=== PATIENT | female | born 1960 | race Caucasian/White ===

== ENCOUNTER 2018-01-19 23:33 | Inpatient (IN) | payer MEDICAID, MEDICARE ==
[~2018-01-19] VITALS: Ht 160 cm; Wt 75.5 kg
[~2018-01-19 23:33] MED LIST: BECL8.7A6 INH; ERGO500017 PO; MULT1TAB60 PO; SALM50DI INH
[2018-01-19] MEDS ORDERED: OMEP-110 PO (23:53)
[2018-01-20] MEDS ORDERED: BUDE10.2 INH (00:06)
[2018-01-20] MEDS ORDERED: ALBU8.5H8 INH (00:07)
[2018-01-20] MEDS ORDERED: OMNIPAQUE 350 MG/ML, 100ML BOTTLE ONE (00:10)
[2018-01-20] MEDS ORDERED: ONDANSETRON ODT 4 MG ONE (00:15)
[2018-01-20] MEDS ORDERED: MORPHINE SULFATE 4 MG/ML, 1ML ONE ×2 (00:16→02:25)
[2018-01-20] MEDS: MORPHINE SULFATE 4 MG/ML, 1ML IVPush PRN ×2 (00:18→02:38)
[2018-01-20 00:27] LABS: BASOPHILS # (AUTO) 0.11 x10^3/uL (0-0.1); BASOPHILS % (AUTO) 1 % (0-1); EOSINOPHILS # (AUTO) 0.07 x10^3/uL (0-0.4); EOSINOPHILS % (AUTO) 1 % (1-7); LYMPHOCYTES # (AUTO) 2.35 x10^3/uL (1-3.4); LYMPHOCYTES % (AUTO) 14 % (22-44); MD NO; MEAN CORPUSCULAR HEMOGLOBIN 37.3 pg (27.0-34.8); MEAN CORPUSCULAR HGB CONC 34.3 g/dL (32.4-35.8); MEAN CORPUSCULAR VOLUME 108.6 fL (80-100); MONOCYTES # (AUTO) 0.94 x10^3/uL (0.2-0.8); MONOCYTES % (AUTO) 6 % (2-9); NEUTROPHILS % (AUTO) 79 % (42-75); PLATELET COUNT 433 x10^3/uL (130-400); RED BLOOD COUNT 3.83 x10^6/uL (3.82-5.3); RED CELL DISTRIBUTION WIDTH 13.9 % (9.6-15.2)
[2018-01-20] MEDS ORDERED: ONDANSETRON ODT 4 MG PO ONE (00:30)
[2018-01-20] MEDS ORDERED: SODIUM CHLORIDE FLUSH 10ML SYR IVF ONE ×2 (00:30→02:00)
[2018-01-20 00:35] LABS: ALANINE AMINOTRANSFERASE 68 U/L (12-78); ALBUMIN 2.9 g/dL (3.4-5.0); ANION GAP 12 mmol/L (5-15); CALCIUM 8.5 mg/dL (8.5-10.1); CHLORIDE 92 mmol/L (98-107); CREATININE 0.34 mg/dL (0.55-1.02)
[2018-01-20 00:37] LABS: ALKALINE PHOSPHATASE 310 U/L (45-117); BILIRUBIN,TOTAL 1.2 mg/dL (0.2-1.0); TOTAL PROTEIN 6.9 g/dL (6.4-8.2)
[2018-01-20] MEDS ORDERED: SODIUM CHLORIDE 0.9% 1,000ML IVBOLUS ONE (02:00)
[2018-01-20 02:15] LABS: MICROSCOPIC NOT IND
[2018-01-20 02:19] LABS: CULTURE INDICATED? NO
[2018-01-20] MEDS ORDERED: NICOTINE 14MG/24 HR PATCH.TD24 ONE (02:34)
[2018-01-20] MEDS ORDERED: SODIUM CHLORIDE 0.9% 1,000 ML IV ONE (02:36)
[2018-01-20] MEDS ORDERED: NICOTINE 14MG/24 HR PATCH.TD24 TD ONE (03:00)
[2018-01-20] MEDS ORDERED: hydrALAzine 20 MG/ML, 1ML IVPush PRN (03:30)
[2018-01-20] MEDS ORDERED: POLYETHYLENE GLYCOL 17 GM PACKET PO PRN (03:30)
[2018-01-20] MEDS: NICOTINE 14MG/24 HR PATCH.TD24 TD SCH ×2 (03:30→21:27)
[2018-01-20] MEDS ORDERED: BISACODYL 10 MG SUPP PR PRN (03:30)
[2018-01-20] MEDS ORDERED: LABETALOL 5MG/ML, 20ML IVPush PRN (03:30)
[2018-01-20] MEDS ORDERED: DOCUSATE 100 MG CAPSULE PO PRN (03:30)
[2018-01-20] MEDS: SODIUM CHLORIDE 0.9% 1,000 ML IV SCH ×2 (04:18→10:09)
[2018-01-20] MEDS: CEFTRIAXONE PMX 1GM/50ML 50 ML IV SCH (04:39)
[2018-01-20 04:41] VITALS: BP 114/81
[2018-01-20] MEDS: ALBUTEROL SULFATE 2.5 MG/3 ML HHN SCH ×4 (04:50→21:00)
[2018-01-20 05:10] LABS: HCT (SEDRATE) 40.2 % (34.6-47.8)
[2018-01-20 05:35] LABS: FREE T4 (FREE THYROXINE) 1.03 ng/dL (0.76-1.46); THYROID STIMULATING HORMONE 12.4 mIU/L (0.358-3.740)
[2018-01-20 05:36] LABS: HEMOGLOBIN A1C 4.5 % (4.2-6.3)
[2018-01-20] MEDS: morphine SULFATE 10 MG/ML, 1ML IVPush PRN ×5 (05:49→20:00)
[2018-01-20] MEDS: ONDANSETRON 2MG/ML, 2ML IVPush PRN ×3 (05:58→18:32)
[2018-01-20] MEDS: METRONIDAZOLE PMX 500MG/100ML 100 ML IV SCH ×3 (05:58→21:27)
[2018-01-20] MEDS: HEPARIN 5,000 UNITS/ML, 1ML SQ SCH ×3 (05:58→21:27)
[2018-01-20 06:13] LABS: TROPONIN I < 0.015 ng/mL (0.000-0.045)
[2018-01-20 06:57] VITALS: BP 114/75
[2018-01-20] MEDS: FAMOTIDINE 20 MG TABLET PO SCH ×2 (08:03→21:27)
[2018-01-20] MEDS: OMEPRAZOLE 20 MG CAPSULE.DR PO SCH (08:03)
[2018-01-20] MEDS: FLUTICASONE/VILANTEROL 100-25MCG/INH INH SCH (09:00)
[2018-01-20] MEDS: LACTATED RINGERS 1,000 ML IV SCH ×4 (10:16→21:26)
[2018-01-20 10:36] LABS: TROPONIN I < 0.015 ng/mL (0.000-0.045)
[2018-01-20 12:27] VITALS: BP 100/67
[2018-01-20 18:55] VITALS: BP 106/72
[2018-01-21] MEDS: morphine SULFATE 10 MG/ML, 1ML IVPush PRN ×8 (00:06→23:14)
[2018-01-21] MEDS: ONDANSETRON 2MG/ML, 2ML IVPush PRN ×3 (00:06→15:57)
[2018-01-21 01:43] VITALS: BP 104/66
[2018-01-21] MEDS: LACTATED RINGERS 1,000 ML IV SCH ×7 (02:22→22:25)
[2018-01-21] MEDS: CEFTRIAXONE PMX 1GM/50ML 50 ML IV SCH (04:27)
[2018-01-21] MEDS: HEPARIN 5,000 UNITS/ML, 1ML SQ SCH ×3 (04:28→20:10)
[2018-01-21 04:51] LABS: BASOPHILS # (AUTO) 0.07 x10^3/uL (0-0.1); BASOPHILS % (AUTO) 1 % (0-1); EOSINOPHILS # (AUTO) 0.17 x10^3/uL (0-0.4); EOSINOPHILS % (AUTO) 2 % (1-7); LYMPHOCYTES # (AUTO) 2.19 x10^3/uL (1-3.4); LYMPHOCYTES % (AUTO) 19 % (22-44); MD NO; MEAN CORPUSCULAR HEMOGLOBIN 36.5 pg (27.0-34.8); MEAN CORPUSCULAR HGB CONC 33.6 g/dL (32.4-35.8); MEAN CORPUSCULAR VOLUME 108.9 fL (80-100); MEAN PLATELET VOLUME 6.9 fL (7.4-10.4); MONOCYTES # (AUTO) 0.76 x10^3/uL (0.2-0.8); MONOCYTES % (AUTO) 7 % (2-9); NEUTROPHILS # (AUTO) 8.25 x10^3/uL (1.8-6.8); NEUTROPHILS % (AUTO) 72 % (42-75); PLATELET COUNT 280 x10^3/uL (130-400); RED CELL DISTRIBUTION WIDTH 13.8 % (9.6-15.2)
[2018-01-21 05:00] LABS: CHLORIDE 100 mmol/L (98-107)
[2018-01-21 05:07] LABS: ALANINE AMINOTRANSFERASE 44 U/L (12-78); ALBUMIN 2.5 g/dL (3.4-5.0); ALKALINE PHOSPHATASE 228 U/L (45-117); ANION GAP 7 mmol/L (5-15); BILIRUBIN,TOTAL 2.3 mg/dL (0.2-1.0); CHOL/HDL RATIO 6.8; CHOLESTEROL, TOTAL 130 mg/dL (140-239); HDL CHOL % 15 % (28-40); HDL CHOLESTEROL (DIRECT) 19 mg/dL (40-60); LDL CHOLESTEROL,CALCULATED 90 mg/dL (54-169); LDL/HDL RATIO 4.7 (0.5-3.0); TOTAL PROTEIN 5.8 g/dL (6.4-8.2); TRIGLYCERIDES 104 mg/dL (50-200); VLDL CHOLESTEROL 21 mg/dL (0-25)
[2018-01-21] MEDS: METRONIDAZOLE PMX 500MG/100ML 100 ML IV SCH ×3 (06:01→22:24)
[2018-01-21 09:00] VITALS: BP 97/66
[2018-01-21] MEDS: FLUTICASONE/VILANTEROL 100-25MCG/INH INH SCH (09:00)
[2018-01-21] MEDS: OMEPRAZOLE 20 MG CAPSULE.DR PO SCH (09:14)
[2018-01-21] MEDS: FAMOTIDINE 20 MG TABLET PO SCH ×2 (09:15→20:10)
[2018-01-21] MEDS: ALBUTEROL SULFATE 2.5 MG/3 ML HHN SCH ×3 (09:20→21:20)
[2018-01-21 13:15] VITALS: BP 97/72
[2018-01-21] MEDS: OXYcodone IR 5MG TABLET PO PRN ×2 (17:17→22:25)
[2018-01-21] MEDS ORDERED: SODIUM CHLORIDE 0.9% 1,000 ML IV SCH (17:30)
[2018-01-21] MEDS ORDERED: LACTATED RINGERS 1,000 ML IV SCH (17:30)
[2018-01-21 18:36] VITALS: BP 126/77
[2018-01-21] MEDS: NICOTINE 14MG/24 HR PATCH.TD24 TD SCH (20:10)
[2018-01-22 01:36] VITALS: BP 123/78
[2018-01-22] MEDS: morphine SULFATE 10 MG/ML, 1ML IVPush PRN ×5 (02:14→18:32)
[2018-01-22] MEDS: OXYcodone IR 5MG TABLET PO PRN ×5 (03:35→21:14)
[2018-01-22] MEDS: CEFTRIAXONE PMX 1GM/50ML 50 ML IV SCH (04:20)
[2018-01-22 04:50] LABS: ALBUMIN 2.3 g/dL (3.4-5.0); CALCIUM 7.4 mg/dL (8.5-10.1); CHLORIDE 98 mmol/L (98-107)
[2018-01-22 04:55] LABS: ANION GAP 8 mmol/L (5-15); CREATININE 0.33 mg/dL (0.55-1.02)
[2018-01-22 04:56] LABS: ALANINE AMINOTRANSFERASE 37 U/L (12-78); ALKALINE PHOSPHATASE 199 U/L (45-117); BILIRUBIN,TOTAL 2.8 mg/dL (0.2-1.0); TOTAL PROTEIN 5.4 g/dL (6.4-8.2)
[2018-01-22] MEDS: HEPARIN 5,000 UNITS/ML, 1ML SQ SCH ×3 (05:22→21:14)
[2018-01-22] MEDS: METRONIDAZOLE PMX 500MG/100ML 100 ML IV SCH ×3 (06:08→23:07)
[2018-01-22] MEDS: ONDANSETRON 2MG/ML, 2ML IVPush PRN ×2 (06:08→21:21)
[2018-01-22 06:14] VITALS: BP 127/80
[2018-01-22] MEDS: ALBUTEROL SULFATE 2.5 MG/3 ML NPPB SCH ×3 (07:10→20:17)
[2018-01-22 07:54] VITALS: BP 117/76
[2018-01-22] MEDS: OMEPRAZOLE 20 MG CAPSULE.DR PO SCH (07:54)
[2018-01-22] MEDS: FAMOTIDINE 20 MG TABLET PO SCH ×2 (07:55→21:14)
[2018-01-22] MEDS: FLUTICASONE/VILANTEROL 100-25MCG/INH INH SCH (07:56)
[2018-01-22] MEDS: LACTATED RINGERS 1,000 ML IV SCH ×2 (09:26→16:59)
[2018-01-22 13:25] VITALS: BP 108/75
[2018-01-22 19:51] VITALS: BP 111/72
[2018-01-22] MEDS: NICOTINE 14MG/24 HR PATCH.TD24 TD SCH (21:14)
[2018-01-23] VITALS (12 sets, daily range): BP systolic 102–135; BP diastolic 61–95
[2018-01-23] MEDS: morphine SULFATE 10 MG/ML, 1ML IVPush PRN ×3 (01:49→18:12)
[2018-01-23] MEDS: OXYcodone IR 5MG TABLET PO PRN ×4 (03:26→20:18)
[2018-01-23] MEDS: CEFTRIAXONE PMX 1GM/50ML 50 ML IV SCH (04:23)
[2018-01-23] MEDS: HEPARIN 5,000 UNITS/ML, 1ML SQ SCH ×3 (04:23→20:17)
[2018-01-23 05:03] LABS: CALCIUM 7.9 mg/dL (8.5-10.1); CHLORIDE 94 mmol/L (98-107)
[2018-01-23 05:09] LABS: ALANINE AMINOTRANSFERASE 38 U/L (12-78); ALBUMIN 2.4 g/dL (3.4-5.0); ALKALINE PHOSPHATASE 222 U/L (45-117); ANION GAP 9 mmol/L (5-15); BILIRUBIN,TOTAL 3.8 mg/dL (0.2-1.0); CREATININE 0.37 mg/dL (0.55-1.02); TOTAL PROTEIN 5.9 g/dL (6.4-8.2)
[2018-01-23] MEDS: ONDANSETRON 2MG/ML, 2ML IVPush PRN (05:32)
[2018-01-23 06:59] LABS: CLOSTRIDIUM DIFFICILE ANTIGEN NEGATIVE; CLOSTRIDIUM DIFFICILE TOXIN NEGATIVE (Negative)
[2018-01-23] MEDS: PROMETHAZINE 25 MG/ML, 1ML IM PRN ×2 (07:32→21:37)
[2018-01-23] MEDS: FLUTICASONE/VILANTEROL 100-25MCG/INH INH SCH (08:40)
[2018-01-23] MEDS: FAMOTIDINE 20 MG TABLET PO SCH ×2 (08:40→20:18)
[2018-01-23] MEDS: METRONIDAZOLE PMX 500MG/100ML 100 ML IV SCH ×3 (08:40→23:20)
[2018-01-23] MEDS: OMEPRAZOLE 20 MG CAPSULE.DR PO SCH (08:40)
[2018-01-23] MEDS: ALBUTEROL SULFATE 2.5 MG/3 ML NPPB SCH ×3 (08:45→22:35)
[2018-01-23] MEDS ORDERED: CEFD300C37 PO (15:30)
[2018-01-23] MEDS ORDERED: METR500T PO (15:30)
[2018-01-23] MEDS ORDERED: DOCU-131 PO (15:30)
[2018-01-23] MEDS ORDERED: TRAM50TA2 PO (15:37)
[2018-01-23] MEDS ORDERED: OXYC5TAB3 PO (15:47)
[2018-01-23] MEDS ORDERED: DOXY100T PO (15:53)
[2018-01-23] MEDS: DOXYCYCLINE 100MG TABLET PO SCH (20:18)
[2018-01-23] MEDS: NICOTINE 14MG/24 HR PATCH.TD24 TD SCH (20:18)
[2018-01-24 00:30] VITALS: BP 102/64
[2018-01-24] MEDS: OXYcodone IR 5MG TABLET PO PRN ×6 (00:33→22:01)
[2018-01-24] MEDS: ACETAMINOPHEN 325 MG TABLET PO PRN (02:59)
[2018-01-24] MEDS: HEPARIN 5,000 UNITS/ML, 1ML SQ SCH ×3 (04:21→22:02)
[2018-01-24] MEDS: CEFTRIAXONE PMX 1GM/50ML 50 ML IV SCH (04:21)
[2018-01-24] MEDS: METRONIDAZOLE PMX 500MG/100ML 100 ML IV SCH ×2 (06:31→17:47)
[2018-01-24 07:27] VITALS: BP 99/67
[2018-01-24] MEDS: ALBUTEROL SULFATE 2.5 MG/3 ML NPPB SCH ×4 (08:05→22:41)
[2018-01-24] MEDS: PROMETHAZINE 25 MG/ML, 1ML IM PRN (08:39)
[2018-01-24 08:46] VITALS: BP 99/65
[2018-01-24] MEDS: FLUTICASONE/VILANTEROL 100-25MCG/INH INH SCH (09:00)
[2018-01-24] MEDS: FAMOTIDINE 20 MG TABLET PO SCH ×2 (09:45→22:01)
[2018-01-24] MEDS: DOXYCYCLINE 100MG TABLET PO SCH ×2 (09:45→22:01)
[2018-01-24] MEDS: morphine SULFATE 10 MG/ML, 1ML IVPush PRN (09:45)
[2018-01-24] MEDS: OMEPRAZOLE 20 MG CAPSULE.DR PO SCH (09:45)
[2018-01-24] MEDS ORDERED: LOPERAMIDE 2 MG CAPSULE ONE (13:50)
[2018-01-24] MEDS ORDERED: LOPERAMIDE 2 MG CAPSULE PO ONE (14:00)
[2018-01-24 14:08] LABS: BASOPHILS # (AUTO) 0.03 x10^3/uL (0-0.1); BASOPHILS % (AUTO) 0 % (0-1); EOSINOPHILS % (AUTO) 1 % (1-7); LYMPHOCYTES # (AUTO) 1.09 x10^3/uL (1-3.4); LYMPHOCYTES % (AUTO) 8 % (22-44); MD NO; MEAN CORPUSCULAR HEMOGLOBIN 36.6 pg (27.0-34.8); MEAN CORPUSCULAR HGB CONC 33.5 g/dL (32.4-35.8); MEAN CORPUSCULAR VOLUME 109.4 fL (80-100); MEAN PLATELET VOLUME 7.4 fL (7.4-10.4); MONOCYTES # (AUTO) 0.79 x10^3/uL (0.2-0.8); MONOCYTES % (AUTO) 6 % (2-9); NEUTROPHILS # (AUTO) 11.51 x10^3/uL (1.8-6.8); NEUTROPHILS % (AUTO) 85 % (42-75); PLATELET COUNT 333 x10^3/uL (130-400); RED BLOOD COUNT 3.38 x10^6/uL (3.82-5.3); RED CELL DISTRIBUTION WIDTH 14.6 % (9.6-15.2)
[2018-01-24 14:18] LABS: ALANINE AMINOTRANSFERASE 35 U/L (12-78); ALBUMIN 2.3 g/dL (3.4-5.0); ANION GAP 10 mmol/L (5-15); CALCIUM 8.1 mg/dL (8.5-10.1); CHLORIDE 95 mmol/L (98-107); CREATININE 0.42 mg/dL (0.55-1.02)
[2018-01-24 14:21] LABS: ALKALINE PHOSPHATASE 208 U/L (45-117); BILIRUBIN,TOTAL 3.9 mg/dL (0.2-1.0); TOTAL PROTEIN 5.9 g/dL (6.4-8.2)
[2018-01-24 14:29] VITALS: BP 102/69
[2018-01-24 15:49] VITALS: BP 90/60
[2018-01-24] MEDS ORDERED: POTASSIUM CHLORIDE 40 MEQ in SODIUM CHLORIDE 0.9% 500 ML IV ONE (16:30)
[2018-01-24] MEDS ORDERED: MAGNESIUM SULFATE PMX 4GM/100M 100 ML IV ONE (16:30)
[2018-01-24] MEDS ORDERED: LORazepam 2 MG/ML, 1ML IVPush ONE (16:30)
[2018-01-24 19:44] VITALS: BP 107/72
[2018-01-24] MEDS: NICOTINE 14MG/24 HR PATCH.TD24 TD SCH (22:04)
[2018-01-25] VITALS (7 sets, daily range): BP systolic 95–126; BP diastolic 58–78
[2018-01-25] MEDS: LORazepam 2 MG/ML, 1ML IVPush PRN ×5 (00:27→17:59)
[2018-01-25] MEDS ORDERED: POTASSIUM CHLORIDE 40 MEQ in SODIUM CHLORIDE 0.9% 500 ML IV ONE ×2 (01:00→11:30)
[2018-01-25] MEDS: METRONIDAZOLE PMX 500MG/100ML 100 ML IV SCH (03:30)
[2018-01-25] MEDS: ALBUTEROL SULFATE 2.5 MG/3 ML NPPB SCH ×4 (04:41→19:35)
[2018-01-25] MEDS: ACETAMINOPHEN 325 MG TABLET PO PRN (04:48)
[2018-01-25] MEDS: CEFTRIAXONE PMX 1GM/50ML 50 ML IV SCH (04:50)
[2018-01-25] MEDS: HEPARIN 5,000 UNITS/ML, 1ML SQ SCH ×3 (04:50→20:02)
[2018-01-25] MEDS: OXYcodone IR 5MG TABLET PO PRN ×3 (05:24→23:06)
[2018-01-25 06:39] LABS: BASOPHILS # (AUTO) 0.02 x10^3/uL (0-0.1); BASOPHILS % (AUTO) 0 % (0-1); EOSINOPHILS # (AUTO) 0.14 x10^3/uL (0-0.4); EOSINOPHILS % (AUTO) 1 % (1-7); LYMPHOCYTES # (AUTO) 1.16 x10^3/uL (1-3.4); LYMPHOCYTES % (AUTO) 11 % (22-44); MD NO; MEAN CORPUSCULAR HEMOGLOBIN 35.9 pg (27.0-34.8); MEAN CORPUSCULAR HGB CONC 32.9 g/dL (32.4-35.8); MEAN CORPUSCULAR VOLUME 109.2 fL (80-100); MEAN PLATELET VOLUME 7.3 fL (7.4-10.4); MONOCYTES # (AUTO) 0.87 x10^3/uL (0.2-0.8); MONOCYTES % (AUTO) 8 % (2-9); NEUTROPHILS # (AUTO) 8.43 x10^3/uL (1.8-6.8); NEUTROPHILS % (AUTO) 79 % (42-75); PLATELET COUNT 307 x10^3/uL (130-400); RED BLOOD COUNT 2.75 x10^6/uL (3.82-5.3); RED CELL DISTRIBUTION WIDTH 14.2 % (9.6-15.2)
[2018-01-25 06:48] LABS: ALANINE AMINOTRANSFERASE 26 U/L (12-78); ALBUMIN 1.9 g/dL (3.4-5.0); ANION GAP 10 mmol/L (5-15); CALCIUM 7.5 mg/dL (8.5-10.1); CHLORIDE 97 mmol/L (98-107); CREATININE 0.37 mg/dL (0.55-1.02)
[2018-01-25 06:50] LABS: ALKALINE PHOSPHATASE 173 U/L (45-117); BILIRUBIN,TOTAL 3.3 mg/dL (0.2-1.0); TOTAL PROTEIN 4.8 g/dL (6.4-8.2)
[2018-01-25] MEDS: PROMETHAZINE 25 MG/ML, 1ML IM PRN (08:57)
[2018-01-25] MEDS: FLUTICASONE/VILANTEROL 100-25MCG/INH INH SCH (09:00)
[2018-01-25] MEDS: OMEPRAZOLE 20 MG CAPSULE.DR PO SCH (09:45)
[2018-01-25] MEDS: FAMOTIDINE 20 MG TABLET PO SCH ×2 (09:45→20:02)
[2018-01-25] MEDS: DOXYCYCLINE 100MG TABLET PO SCH ×2 (09:45→20:02)
[2018-01-25] MEDS: PIPERACILLIN/TAZO/PMX 3.375GM 50 ML IV SCH ×2 (14:37→20:01)
[2018-01-25] MEDS: NICOTINE 14MG/24 HR PATCH.TD24 TD SCH (20:02)
[2018-01-25] MEDS ORDERED: ALBUTEROL SULFATE 2.5 MG/3 ML ONE (23:10)
[2018-01-26 01:21] VITALS: BP 107/72
[2018-01-26] MEDS: PIPERACILLIN/TAZO/PMX 3.375GM 50 ML IV SCH ×4 (01:52→20:06)
[2018-01-26] MEDS: OXYcodone IR 5MG TABLET PO PRN ×4 (03:01→22:38)
[2018-01-26] MEDS: HEPARIN 5,000 UNITS/ML, 1ML SQ SCH ×3 (04:51→22:16)
[2018-01-26 05:34] LABS: BASOPHILS # (AUTO) 0.05 x10^3/uL (0-0.1); BASOPHILS % (AUTO) 0 % (0-1); EOSINOPHILS # (AUTO) 0.25 x10^3/uL (0-0.4); EOSINOPHILS % (AUTO) 2 % (1-7); LYMPHOCYTES # (AUTO) 1.57 x10^3/uL (1-3.4); LYMPHOCYTES % (AUTO) 13 % (22-44); MD NO; MEAN CORPUSCULAR HEMOGLOBIN 37.2 pg (27.0-34.8); MEAN CORPUSCULAR HGB CONC 34.1 g/dL (32.4-35.8); MEAN CORPUSCULAR VOLUME 109.3 fL (80-100); MEAN PLATELET VOLUME 7.6 fL (7.4-10.4); MONOCYTES # (AUTO) 0.91 x10^3/uL (0.2-0.8); MONOCYTES % (AUTO) 7 % (2-9); NEUTROPHILS # (AUTO) 9.78 x10^3/uL (1.8-6.8); NEUTROPHILS % (AUTO) 78 % (42-75); PLATELET COUNT 336 x10^3/uL (130-400); RED BLOOD COUNT 3.01 x10^6/uL (3.82-5.3); RED CELL DISTRIBUTION WIDTH 14.3 % (9.6-15.2)
[2018-01-26 05:38] LABS: ALANINE AMINOTRANSFERASE 31 U/L (12-78); ALBUMIN 2.1 g/dL (3.4-5.0); ANION GAP 6 mmol/L (5-15); CALCIUM 7.5 mg/dL (8.5-10.1); CHLORIDE 98 mmol/L (98-107); CREATININE 0.35 mg/dL (0.55-1.02)
[2018-01-26 05:40] LABS: ALKALINE PHOSPHATASE 204 U/L (45-117); BILIRUBIN,TOTAL 2.8 mg/dL (0.2-1.0); TOTAL PROTEIN 5.5 g/dL (6.4-8.2)
[2018-01-26] MEDS: ALBUTEROL SULFATE 2.5 MG/3 ML NPPB SCH ×5 (06:25→23:15)
[2018-01-26 06:59] VITALS: BP 102/69
[2018-01-26] MEDS ORDERED: ALBUTEROL SULFATE 2.5 MG/3 ML NPPB SCH (07:00)
[2018-01-26] MEDS: DOXYCYCLINE 100MG TABLET PO SCH ×2 (08:57→22:16)
[2018-01-26] MEDS: GUAIFENESIN/DM 200-20MG, 10ML UDC PO PRN (08:57)
[2018-01-26] MEDS: OMEPRAZOLE 20 MG CAPSULE.DR PO SCH (08:57)
[2018-01-26] MEDS: PROMETHAZINE 25 MG/ML, 1ML IM PRN (08:57)
[2018-01-26] MEDS: FAMOTIDINE 20 MG TABLET PO SCH ×2 (08:57→22:16)
[2018-01-26] MEDS ORDERED: POTASSIUM PHOSPHATE 44 MEQ in SODIUM CHLORIDE 0.9% 500 ML IV ONE (12:00)
[2018-01-26] MEDS: FLUTICASONE/VILANTEROL 100-25MCG/INH INH SCH ×2 (12:30→12:32)
[2018-01-26 12:49] VITALS: BP 100/62
[2018-01-26 19:02] VITALS: BP 91/62
[2018-01-26] MEDS: NICOTINE 14MG/24 HR PATCH.TD24 TD SCH (22:17)
[2018-01-27 01:16] VITALS: BP 97/63
[2018-01-27] MEDS: PIPERACILLIN/TAZO/PMX 3.375GM 50 ML IV SCH ×4 (02:12→20:00)
[2018-01-27] MEDS: morphine SULFATE 10 MG/ML, 1ML IVPush PRN (02:13)
[2018-01-27] MEDS: OXYcodone IR 5MG TABLET PO PRN ×4 (03:45→21:17)
[2018-01-27] MEDS: ALBUTEROL SULFATE 2.5 MG/3 ML NPPB SCH ×6 (04:25→23:10)
[2018-01-27 04:39] LABS: ANION GAP 8 mmol/L (5-15); CALCIUM 7.4 mg/dL (8.5-10.1); CHLORIDE 97 mmol/L (98-107)
[2018-01-27 04:42] LABS: ALANINE AMINOTRANSFERASE 26 U/L (12-78); ALKALINE PHOSPHATASE 198 U/L (45-117); BILIRUBIN,TOTAL 2.9 mg/dL (0.2-1.0); CREATININE 0.32 mg/dL (0.55-1.02); TOTAL PROTEIN 5.1 g/dL (6.4-8.2)
[2018-01-27] MEDS: HEPARIN 5,000 UNITS/ML, 1ML SQ SCH ×3 (05:21→21:20)
[2018-01-27 06:47] VITALS: BP 114/75
[2018-01-27] MEDS: FLUTICASONE/VILANTEROL 100-25MCG/INH INH SCH (08:36)
[2018-01-27] MEDS: OMEPRAZOLE 20 MG CAPSULE.DR PO SCH (09:03)
[2018-01-27] MEDS: FAMOTIDINE 20 MG TABLET PO SCH ×2 (09:03→21:17)
[2018-01-27] MEDS: DOXYCYCLINE 100MG TABLET PO SCH ×2 (09:03→21:17)
[2018-01-27] MEDS: LORazepam 2 MG/ML, 1ML IVPush PRN (09:04)
[2018-01-27 12:09] VITALS: BP 118/78
[2018-01-27] MEDS: PROMETHAZINE 25 MG/ML, 1ML IM PRN ×2 (18:17→21:20)
[2018-01-27 19:44] VITALS: BP 91/59
[2018-01-27] MEDS: NICOTINE 14MG/24 HR PATCH.TD24 TD SCH (21:21)
[2018-01-27] MEDS: AMPICILLIN/SULBACTAM 1,500 MG in SODIUM CHLORIDE 0.9% 50 ML IV SCH (21:21)
[2018-01-28] MEDS: morphine SULFATE 10 MG/ML, 1ML IVPush PRN (00:22)
[2018-01-28 01:38] VITALS: BP 103/67
[2018-01-28] MEDS: AMPICILLIN/SULBACTAM 1,500 MG in SODIUM CHLORIDE 0.9% 50 ML IV SCH ×4 (02:26→20:55)
[2018-01-28] MEDS: OXYcodone IR 5MG TABLET PO PRN ×4 (02:26→20:55)
[2018-01-28] MEDS: ACETAMINOPHEN 325 MG TABLET PO PRN (03:44)
[2018-01-28 04:40] LABS: BASOPHILS # (AUTO) 0.05 x10^3/uL (0-0.1); BASOPHILS % (AUTO) 0 % (0-1); EOSINOPHILS # (AUTO) 0.23 x10^3/uL (0-0.4); EOSINOPHILS % (AUTO) 2 % (1-7); LYMPHOCYTES # (AUTO) 1.85 x10^3/uL (1-3.4); LYMPHOCYTES % (AUTO) 15 % (22-44); MD NO; MEAN CORPUSCULAR HEMOGLOBIN 37.8 pg (27.0-34.8); MEAN CORPUSCULAR HGB CONC 34.4 g/dL (32.4-35.8); MEAN CORPUSCULAR VOLUME 110.2 fL (80-100); MEAN PLATELET VOLUME 7.3 fL (7.4-10.4); MONOCYTES # (AUTO) 0.53 x10^3/uL (0.2-0.8); MONOCYTES % (AUTO) 4 % (2-9); NEUTROPHILS # (AUTO) 10.08 x10^3/uL (1.8-6.8); NEUTROPHILS % (AUTO) 79 % (42-75); PLATELET COUNT 382 x10^3/uL (130-400); RED BLOOD COUNT 2.76 x10^6/uL (3.82-5.3); RED CELL DISTRIBUTION WIDTH 14.4 % (9.6-15.2)
[2018-01-28 04:50] LABS: ANION GAP 9 mmol/L (5-15); CALCIUM 7.3 mg/dL (8.5-10.1); CHLORIDE 97 mmol/L (98-107)
[2018-01-28 04:53] LABS: ALANINE AMINOTRANSFERASE 28 U/L (12-78); ALKALINE PHOSPHATASE 204 U/L (45-117); BILIRUBIN,TOTAL 2.5 mg/dL (0.2-1.0); TOTAL PROTEIN 5.1 g/dL (6.4-8.2)
[2018-01-28] MEDS: HEPARIN 5,000 UNITS/ML, 1ML SQ SCH ×3 (05:23→20:55)
[2018-01-28] MEDS: ALBUTEROL SULFATE 2.5 MG/3 ML NPPB SCH ×5 (06:00→22:00)
[2018-01-28] MEDS: GUAIFENESIN 200 MG TABLET PO SCH ×4 (06:40→20:56)
[2018-01-28 07:09] VITALS: BP 94/61
[2018-01-28] MEDS: FAMOTIDINE 20 MG TABLET PO SCH ×2 (08:08→20:55)
[2018-01-28] MEDS: DOXYCYCLINE 100MG TABLET PO SCH ×2 (08:08→20:56)
[2018-01-28] MEDS: OMEPRAZOLE 20 MG CAPSULE.DR PO SCH (08:08)
[2018-01-28] MEDS: FLUTICASONE/VILANTEROL 100-25MCG/INH INH SCH (08:59)
[2018-01-28] MEDS: ONDANSETRON 2MG/ML, 2ML IVPush PRN (11:17)
[2018-01-28 13:27] VITALS: BP 99/67
[2018-01-28 19:40] VITALS: BP 102/68
[2018-01-28] MEDS: NICOTINE 14MG/24 HR PATCH.TD24 TD SCH (20:56)
[2018-01-28] MEDS: GUAIFENESIN/DM 200-20MG, 10ML UDC PO PRN (22:00)
[2018-01-29 01:01] VITALS: BP 113/70
[2018-01-29] MEDS: OXYcodone IR 5MG TABLET PO PRN ×5 (01:20→22:01)
[2018-01-29] MEDS: AMPICILLIN/SULBACTAM 1,500 MG in SODIUM CHLORIDE 0.9% 50 ML IV SCH ×4 (02:31→20:47)
[2018-01-29] MEDS: morphine SULFATE 10 MG/ML, 1ML IVPush PRN (04:09)
[2018-01-29] MEDS: HEPARIN 5,000 UNITS/ML, 1ML SQ SCH ×3 (04:18→20:48)
[2018-01-29] MEDS: ALBUTEROL SULFATE 2.5 MG/3 ML NPPB SCH ×5 (06:00→22:00)
[2018-01-29] MEDS: GUAIFENESIN 200 MG TABLET PO SCH ×4 (06:11→20:48)
[2018-01-29 06:49] LABS: MEAN CORPUSCULAR HEMOGLOBIN 36.9 pg (27.0-34.8); MEAN CORPUSCULAR HGB CONC 33.1 g/dL (32.4-35.8); MEAN CORPUSCULAR VOLUME 111.3 fL (80-100); MEAN PLATELET VOLUME 7.4 fL (7.4-10.4); PLATELET COUNT 413 x10^3/uL (130-400); RED BLOOD COUNT 2.87 x10^6/uL (3.82-5.3); RED CELL DISTRIBUTION WIDTH 14.1 % (9.6-15.2)
[2018-01-29 07:01] LABS: ALANINE AMINOTRANSFERASE 28 U/L (12-78); ANION GAP 6 mmol/L (5-15); CALCIUM 8.1 mg/dL (8.5-10.1); CHLORIDE 101 mmol/L (98-107); CREATININE 0.31 mg/dL (0.55-1.02)
[2018-01-29 07:03] LABS: ALKALINE PHOSPHATASE 211 U/L (45-117); BILIRUBIN,TOTAL 2.2 mg/dL (0.2-1.0); TOTAL PROTEIN 5.6 g/dL (6.4-8.2)
[2018-01-29 07:16] LABS: BASOPHILS # (AUTO) 0.03 x10^3/uL (0-0.1); BASOPHILS % (AUTO) 0 % (0-1); EOSINOPHILS # (AUTO) 0.31 x10^3/uL (0-0.4); EOSINOPHILS % (AUTO) 2 % (1-7); LYMPHOCYTES # (AUTO) 2.27 x10^3/uL (1-3.4); LYMPHOCYTES % (AUTO) 17 % (22-44); MD SCAN; MONOCYTES # (AUTO) 0.83 x10^3/uL (0.2-0.8); MONOCYTES % (AUTO) 6 % (2-9); NEUTROPHILS # (AUTO) 10.14 x10^3/uL (1.8-6.8); NEUTROPHILS % (AUTO) 75 % (42-75)
[2018-01-29 07:19] VITALS: BP 117/76
[2018-01-29] MEDS: OMEPRAZOLE 20 MG CAPSULE.DR PO SCH (08:32)
[2018-01-29] MEDS: FLUTICASONE/VILANTEROL 100-25MCG/INH INH SCH (08:32)
[2018-01-29] MEDS: FAMOTIDINE 20 MG TABLET PO SCH ×2 (08:32→20:48)
[2018-01-29] MEDS: FUROSEMIDE 20 MG TABLET PO SCH (08:32)
[2018-01-29] MEDS: DOXYCYCLINE 100MG TABLET PO SCH ×2 (08:32→20:48)
[2018-01-29 14:25] VITALS: BP 101/67
[2018-01-29] MEDS ORDERED: POTASSIUM CHLORIDE 20 MEQ TAB.ER.PRT PO ONE (16:30)
[2018-01-29 19:33] VITALS: BP 116/80
[2018-01-29] MEDS: NICOTINE 14MG/24 HR PATCH.TD24 TD SCH (20:48)
[2018-01-30 01:39] VITALS: BP 114/79
[2018-01-30] MEDS: OXYcodone IR 5MG TABLET PO PRN ×4 (02:03→15:04)
[2018-01-30] MEDS: AMPICILLIN/SULBACTAM 1,500 MG in SODIUM CHLORIDE 0.9% 50 ML IV SCH (02:04)
[2018-01-30] MEDS ORDERED: ALBUTEROL SULFATE 2.5 MG/3 ML ONE (02:33)
[2018-01-30] MEDS: ALBUTEROL SULFATE 2.5 MG/3 ML NPPB SCH ×5 (02:39→19:28)
[2018-01-30 05:15] LABS: MEAN CORPUSCULAR HEMOGLOBIN 37.1 pg (27.0-34.8); MEAN CORPUSCULAR HGB CONC 33.6 g/dL (32.4-35.8); MEAN CORPUSCULAR VOLUME 110.2 fL (80-100); MEAN PLATELET VOLUME 7.5 fL (7.4-10.4); PLATELET COUNT 421 x10^3/uL (130-400); RED BLOOD COUNT 3.09 x10^6/uL (3.82-5.3); RED CELL DISTRIBUTION WIDTH 14.4 % (9.6-15.2)
[2018-01-30 05:24] LABS: CHLORIDE 99 mmol/L (98-107)
[2018-01-30 05:35] LABS: ALANINE AMINOTRANSFERASE 30 U/L (12-78); ALBUMIN 2.1 g/dL (3.4-5.0); ALKALINE PHOSPHATASE 219 U/L (45-117); ANION GAP 8 mmol/L (5-15); BILIRUBIN,TOTAL 2.2 mg/dL (0.2-1.0); CALCIUM 8.1 mg/dL (8.5-10.1); TOTAL PROTEIN 5.9 g/dL (6.4-8.2)
[2018-01-30 05:54] LABS: BASOPHILS # (AUTO) 0.05 x10^3/uL (0-0.1); BASOPHILS % (AUTO) 0 % (0-1); EOSINOPHILS # (AUTO) 0.29 x10^3/uL (0-0.4); EOSINOPHILS % (AUTO) 2 % (1-7); LYMPHOCYTES # (AUTO) 2.51 x10^3/uL (1-3.4); LYMPHOCYTES % (AUTO) 21 % (22-44); MD SCAN; MONOCYTES # (AUTO) 0.66 x10^3/uL (0.2-0.8); MONOCYTES % (AUTO) 5 % (2-9); NEUTROPHILS % (AUTO) 71 % (42-75)
[2018-01-30] MEDS: GUAIFENESIN 200 MG TABLET PO SCH ×3 (06:06→15:05)
[2018-01-30] MEDS: HEPARIN 5,000 UNITS/ML, 1ML SQ SCH ×2 (06:07→12:56)
[2018-01-30] MEDS ORDERED: FLUTICASONE/VILANTEROL 100-25MCG/INH INH SCH (09:00)
[2018-01-30] MEDS ORDERED: AMOXICILLIN/CLAV 875-125MG TABLET PO SCH (09:00)
[2018-01-30] MEDS: FUROSEMIDE 20 MG TABLET PO SCH ×3 (09:04→17:54)
[2018-01-30] MEDS: FAMOTIDINE 20 MG TABLET PO SCH (09:04)
[2018-01-30] MEDS: DOXYCYCLINE 100MG TABLET PO SCH (09:04)
[2018-01-30] MEDS: OMEPRAZOLE 20 MG CAPSULE.DR PO SCH (09:04)
[2018-01-30 09:45] VITALS: BP 100/72
[2018-01-30 13:30] VITALS: BP 95/61
[2018-01-30 20:56] VITALS: BP 117/80
== END 2018-01-30 21:28 | disposition left against medical advice (07) | DRG 177 ==
LOC: ED 01-20 02:07 → EDIP 01-20 02:49 → 3NW 01-20 03:45 → 3NE 01-27 17:38
PROVIDERS: ADMIT Internal Medicine; ATTEND Internal Medicine
PROC: 0W9G3ZZ Drainage of Peritoneal Cavity, Percutaneous Approach (ICD-10-PCS; principal; 2018-01-25)
DX: J15.6 Pneumonia due to other Gram-negative bacteria (principal); K85.20 Alcohol induced acute pancreatitis without necrosis or infection; J96.01 Acute respiratory failure with hypoxia; E44.0 Moderate protein-calorie malnutrition; J44.0 Chronic obstructive pulmonary disease with (acute) lower respiratory infection; R18.8 Other ascites; F10.10 Alcohol abuse, uncomplicated; K76.0 Fatty (change of) liver, not elsewhere classified; K21.9 Gastro-esophageal reflux disease without esophagitis; M17.0 Bilateral primary osteoarthritis of knee; K86.89 Other specified diseases of pancreas; F41.9 Anxiety disorder, unspecified; K52.9 Noninfective gastroenteritis and colitis, unspecified; E03.9 Hypothyroidism, unspecified; E55.9 Vitamin D deficiency, unspecified; G62.9 Polyneuropathy, unspecified; F17.200 Nicotine dependence, unspecified, uncomplicated; G89.29 Other chronic pain; I73.9 Peripheral vascular disease, unspecified; K57.30 Diverticulosis of large intestine without perforation or abscess without bleeding; Z76.5 Malingerer [conscious simulation]; Z82.49 Family history of ischemic heart disease and other diseases of the circulatory system; Z79.899 Other long term (current) drug therapy; Z79.1 Long term (current) use of non-steroidal anti-inflammatories (NSAID); Z79.2 Long term (current) use of antibiotics; Z90.89 Acquired absence of other organs; Z88.6 Allergy status to analgesic agent; Z80.9 Family history of malignant neoplasm, unspecified; Z68.29 Body mass index [BMI] 29.0-29.9, adult
CPT/HCPCS: 36415; 49083; 71045; 72220; 74177; 74181; 76700; 80053; 80061; 81003; 82042; 82962; 83036; 83615; 83690; 83735; 83880; 84100; 84157; 84439; 84443; 84484; 85025; 85651; 87040; 87070; 87205; 87324; 88112; 89051; 93306; 93970; 94640; 96361; 96374; 96376; J0696; J1644; J2405; J2543; J2550; J3480; J7613; Q0162; Q9967; J0295; J2060; J2270; J3475; J7030; J7040; J7120

== ENCOUNTER 2018-03-04 23:41 | Inpatient (IN) | payer MEDICARE ==
[~2018-03-04] VITALS: Ht 160 cm; Wt 77.6 kg
[~2018-03-04 23:41] MED LIST changes: +ALBU8.5H8 INH; +BUDE10.2 INH; +CEFD300C37 PO; +DOCU-131 PO; +DOXY100T PO; +METR500T PO; +OMEP-110 PO; +OXYC5TAB3 PO; +TRAM50TA2 PO
[2018-03-05] MEDS ORDERED: ONDANSETRON 2MG/ML, 2ML ONE (00:20)
[2018-03-05] MEDS ORDERED: MORPHINE SULFATE 4 MG/ML, 1ML ONE (00:20)
[2018-03-05] MEDS ORDERED: LORazepam 2 MG/ML, 1ML ONE (00:21)
[2018-03-05] MEDS ORDERED: MORPHINE SULFATE 4 MG/ML, 1ML IVPush PRN (00:30)
[2018-03-05] MEDS ORDERED: SODIUM CHLORIDE 0.9% 1,000ML IVBOLUS ONE ×2 (00:30→02:30)
[2018-03-05] MEDS ORDERED: LORazepam 2 MG/ML, 1ML IVPush ONE (00:30)
[2018-03-05] MEDS ORDERED: ONDANSETRON 2MG/ML, 2ML IVPush ONE (00:30)
[2018-03-05] MEDS ORDERED: SODIUM CHLORIDE FLUSH 10ML SYR IVF ONE (00:30)
[2018-03-05 00:41] LABS: MEAN CORPUSCULAR HEMOGLOBIN 37.1 pg (27.0-34.8); MEAN CORPUSCULAR HGB CONC 35.2 g/dL (32.4-35.8); MEAN CORPUSCULAR VOLUME 105.6 fL (80-100); MEAN PLATELET VOLUME 7.1 fL (7.4-10.4); PLATELET COUNT 396 x10^3/uL (130-400); RED BLOOD COUNT 3.39 x10^6/uL (3.82-5.3); RED CELL DISTRIBUTION WIDTH 15.3 % (9.6-15.2)
[2018-03-05 00:49] LABS: ALANINE AMINOTRANSFERASE 27 U/L (12-78); ALBUMIN 2.1 g/dL (3.4-5.0); CALCIUM 7.5 mg/dL (8.5-10.1); CHLORIDE 89 mmol/L (98-107)
[2018-03-05 00:51] LABS: ALKALINE PHOSPHATASE 327 U/L (45-117); BILIRUBIN,TOTAL 1.3 mg/dL (0.2-1.0); TOTAL PROTEIN 5.6 g/dL (6.4-8.2)
[2018-03-05 00:53] LABS: INTERNATIONAL NORMALIZED RATIO 1.4 (0.93-1.1); PROTHROMBIN TIME 14.5 Seconds (9.6-11.5)
[2018-03-05 00:55] LABS: ANION GAP 13 mmol/L (5-15)
[2018-03-05 00:57] LABS: MD SCAN
[2018-03-05 00:58] LABS: BASOPHILS # (AUTO) 0.05 x10^3/uL (0-0.1); BASOPHILS % (AUTO) 0 % (0-1); EOSINOPHILS # (AUTO) 0.12 x10^3/uL (0-0.4); EOSINOPHILS % (AUTO) 1 % (1-7); LYMPHOCYTES # (AUTO) 2.42 x10^3/uL (1-3.4); LYMPHOCYTES % (AUTO) 13 % (22-44); MONOCYTES # (AUTO) 1.62 x10^3/uL (0.2-0.8); MONOCYTES % (AUTO) 9 % (2-9); NEUTROPHILS # (AUTO) 14.47 x10^3/uL (1.8-6.8); NEUTROPHILS % (AUTO) 78 % (42-75)
[2018-03-05] MEDS ORDERED: LIDOCAINE 1%-EPI 1:100K, 20ML INFIL ONE (01:00)
[2018-03-05] MEDS ORDERED: LIDOCAINE-MPF 2% ,5ML ONE (01:04)
[2018-03-05 02:24] LABS: MICROSCOPIC AUTO
[2018-03-05 02:26] LABS: CULTURE INDICATED? YES
[2018-03-05] MEDS ORDERED: CEFTRIAXONE PMX 1GM/50ML 50 ML ONE (02:50)
[2018-03-05] MEDS ORDERED: CEFTRIAXONE 1,000 MG in SODIUM CHLORIDE 0.9% 50 ML IVPB ONE (03:00)
[2018-03-05] MEDS ORDERED: ALBUMIN HUMAN 5% 500 ML IV ONE (03:30)
[2018-03-05] MEDS ORDERED: CEFTRIAXONE 1,000 MG in SODIUM CHLORIDE 0.9% 50 ML IV ONE ×2 (03:30→06:00)
[2018-03-05] MEDS ORDERED: SODIUM CHLORIDE 0.9% 1,000 ML IV SCH (04:31)
[2018-03-05 04:34] VITALS: BP 122/80
[2018-03-05] MEDS ORDERED: POLYETHYLENE GLYCOL 17 GM PACKET PO PRN (05:00)
[2018-03-05] MEDS ORDERED: ACETAMINOPHEN 325 MG TABLET PO PRN (05:00)
[2018-03-05] MEDS: ENOXAPARIN 40 MG/0.4 ML SQ SCH (06:07)
[2018-03-05] MEDS: ONDANSETRON 2MG/ML, 2ML IVPush PRN ×2 (06:45→21:26)
[2018-03-05] MEDS ORDERED: ALBUTEROL SULFATE 2.5 MG/3 ML ONE (06:51)
[2018-03-05 06:59] VITALS: BP 109/74
[2018-03-05] MEDS: NICOTINE 21 MG/24 HR PATCH.TD24 TD SCH (09:00)
[2018-03-05] MEDS: OMEPRAZOLE 20 MG CAPSULE.DR PO SCH (09:00)
[2018-03-05] MEDS ORDERED: ALBUTEROL SULFATE 2.5 MG/3 ML HHN SCH (09:00)
[2018-03-05 09:19] LABS: ANION GAP 10 mmol/L (5-15); CALCIUM 7.3 mg/dL (8.5-10.1); CHLORIDE 98 mmol/L (98-107); CREATININE 0.37 mg/dL (0.55-1.02)
[2018-03-05 09:22] LABS: FREE T4 (FREE THYROXINE) 1.22 ng/dL (0.76-1.46)
[2018-03-05] MEDS: ALBUTEROL SULFATE 2.5 MG/3 ML NPPB SCH ×3 (09:35→20:37)
[2018-03-05] MEDS: MORPHINE SULFATE 4 MG/ML, 1ML IV PRN ×2 (11:48→21:25)
[2018-03-05] MEDS: ALBUMIN HUMAN 25% 100 ML IV SCH ×3 (11:48→23:17)
[2018-03-05 12:56] VITALS: BP 95/64
[2018-03-05 14:00] LABS: CHOL/HDL RATIO 7.8; LDL/HDL RATIO 5.4 (0.5-3.0)
[2018-03-05] MEDS: THIAMINE 100MG TABLET PO SCH (14:03)
[2018-03-05] MEDS: FOLIC ACID 1 MG TABLET PO SCH (14:03)
[2018-03-05] MEDS: MULTIVITAMIN 1 TABLET PO SCH (14:03)
[2018-03-05 16:05] LABS: OSMOLALITY,URINE 83 mOsm/kg (500-850)
[2018-03-05 20:00] VITALS: BP 97/65
[2018-03-06 02:00] VITALS: BP 105/69
[2018-03-06 04:25] LABS: BASOPHILS # (AUTO) 0.02 x10^3/uL (0-0.1); BASOPHILS % (AUTO) 0 % (0-1); EOSINOPHILS % (AUTO) 1 % (1-7); LYMPHOCYTES # (AUTO) 1.77 x10^3/uL (1-3.4); LYMPHOCYTES % (AUTO) 19 % (22-44); MD NO; MEAN CORPUSCULAR HEMOGLOBIN 36.8 pg (27.0-34.8); MEAN CORPUSCULAR HGB CONC 34.2 g/dL (32.4-35.8); MEAN CORPUSCULAR VOLUME 107.8 fL (80-100); MEAN PLATELET VOLUME 7.6 fL (7.4-10.4); MONOCYTES # (AUTO) 1.02 x10^3/uL (0.2-0.8); MONOCYTES % (AUTO) 11 % (2-9); NEUTROPHILS # (AUTO) 6.42 x10^3/uL (1.8-6.8); NEUTROPHILS % (AUTO) 69 % (42-75); PLATELET COUNT 299 x10^3/uL (130-400); RED CELL DISTRIBUTION WIDTH 15.9 % (9.6-15.2)
[2018-03-06] MEDS: MORPHINE SULFATE 4 MG/ML, 1ML IV PRN ×4 (04:43→20:46)
[2018-03-06] MEDS: ONDANSETRON 2MG/ML, 2ML IVPush PRN ×3 (04:43→20:53)
[2018-03-06 05:27] LABS: ALANINE AMINOTRANSFERASE 21 U/L (12-78); ALBUMIN 2.8 g/dL (3.4-5.0); ANION GAP 10 mmol/L (5-15); CALCIUM 7.3 mg/dL (8.5-10.1); CHLORIDE 102 mmol/L (98-107)
[2018-03-06 05:29] LABS: ALKALINE PHOSPHATASE 229 U/L (45-117); BILIRUBIN,TOTAL 1.3 mg/dL (0.2-1.0); CREATININE 0.34 mg/dL (0.55-1.02); TOTAL PROTEIN 5.4 g/dL (6.4-8.2)
[2018-03-06] MEDS: ENOXAPARIN 40 MG/0.4 ML SQ SCH (05:40)
[2018-03-06] MEDS: CEFTRIAXONE 2 GM in SODIUM CHLORIDE 0.9% 50 ML IV SCH (05:40)
[2018-03-06] MEDS ORDERED: LACTULOSE 10 GM/15 ML UDC PO PRN (07:00)
[2018-03-06] MEDS ORDERED: POTASSIUM PHOSPHATE 22 MEQ in SODIUM CHLORIDE 0.9% 500 ML IV ONE (07:30)
[2018-03-06] MEDS ORDERED: POTASSIUM CHLORIDE 40 MEQ in SODIUM CHLORIDE 0.9% 500 ML IV ONE (07:30)
[2018-03-06 07:31] VITALS: BP 115/77
[2018-03-06] MEDS: ALBUTEROL SULFATE 2.5 MG/3 ML NPPB SCH ×3 (07:40→20:14)
[2018-03-06] MEDS: MULTIVITAMIN 1 TABLET PO SCH (08:31)
[2018-03-06] MEDS: ALBUMIN HUMAN 25% 100 ML IV SCH ×2 (08:31→20:54)
[2018-03-06] MEDS: OMEPRAZOLE 20 MG CAPSULE.DR PO SCH (08:31)
[2018-03-06] MEDS: THIAMINE 100MG TABLET PO SCH (08:32)
[2018-03-06] MEDS: FOLIC ACID 1 MG TABLET PO SCH (08:32)
[2018-03-06] MEDS: NICOTINE 21 MG/24 HR PATCH.TD24 TD SCH (08:32)
[2018-03-06] MEDS: FLUTICASONE/VILANTEROL 100-25MCG/INH INH SCH (09:40)
[2018-03-06 13:01] VITALS: BP 105/71
[2018-03-06] MEDS ORDERED: OMNIPAQUE 350 MG/ML, 100ML BOTTLE ONE (13:58)
[2018-03-06 20:00] VITALS: BP 105/69
[2018-03-07] MEDS: MORPHINE SULFATE 4 MG/ML, 1ML IV PRN ×5 (00:50→19:56)
[2018-03-07 01:49] VITALS: BP 101/66
[2018-03-07] MEDS: ALBUMIN HUMAN 25% 100 ML IV SCH (03:01)
[2018-03-07] MEDS: ONDANSETRON 2MG/ML, 2ML IVPush PRN ×4 (03:52→19:56)
[2018-03-07] MEDS: ENOXAPARIN 40 MG/0.4 ML SQ SCH (05:15)
[2018-03-07] MEDS: CEFTRIAXONE 2 GM in SODIUM CHLORIDE 0.9% 50 ML IV SCH (05:16)
[2018-03-07 06:06] LABS: BASOPHILS # (AUTO) 0.02 x10^3/uL (0-0.1); BASOPHILS % (AUTO) 0 % (0-1); EOSINOPHILS # (AUTO) 0.13 x10^3/uL (0-0.4); EOSINOPHILS % (AUTO) 2 % (1-7); LYMPHOCYTES # (AUTO) 1.42 x10^3/uL (1-3.4); LYMPHOCYTES % (AUTO) 19 % (22-44); MD NO; MEAN CORPUSCULAR HEMOGLOBIN 35.9 pg (27.0-34.8); MEAN CORPUSCULAR HGB CONC 33.2 g/dL (32.4-35.8); MONOCYTES # (AUTO) 0.87 x10^3/uL (0.2-0.8); MONOCYTES % (AUTO) 12 % (2-9); NEUTROPHILS # (AUTO) 4.97 x10^3/uL (1.8-6.8); NEUTROPHILS % (AUTO) 67 % (42-75); PLATELET COUNT 223 x10^3/uL (130-400); RED BLOOD COUNT 2.83 x10^6/uL (3.82-5.3); RED CELL DISTRIBUTION WIDTH 15.9 % (9.6-15.2)
[2018-03-07 06:39] LABS: ALANINE AMINOTRANSFERASE 20 U/L (12-78); ANION GAP 9 mmol/L (5-15); CALCIUM 7.6 mg/dL (8.5-10.1); CHLORIDE 106 mmol/L (98-107); CREATININE 0.27 mg/dL (0.55-1.02)
[2018-03-07 06:42] LABS: ALKALINE PHOSPHATASE 168 U/L (45-117); BILIRUBIN,TOTAL 1.1 mg/dL (0.2-1.0); TOTAL PROTEIN 5.7 g/dL (6.4-8.2)
[2018-03-07 06:45] VITALS: BP 101/68
[2018-03-07] MEDS: ALBUTEROL SULFATE 2.5 MG/3 ML NPPB SCH ×3 (08:33→20:09)
[2018-03-07] MEDS ORDERED: SPIRONOLACTONE 25 MG TABLET PO SCH (09:00)
[2018-03-07] MEDS: FUROSEMIDE 20 MG TABLET PO SCH (09:23)
[2018-03-07] MEDS: THIAMINE 100MG TABLET PO SCH (09:23)
[2018-03-07] MEDS: MULTIVITAMIN 1 TABLET PO SCH (09:23)
[2018-03-07] MEDS: FOLIC ACID 1 MG TABLET PO SCH (09:23)
[2018-03-07] MEDS: OMEPRAZOLE 20 MG CAPSULE.DR PO SCH (09:23)
[2018-03-07] MEDS: NICOTINE 21 MG/24 HR PATCH.TD24 TD SCH (09:24)
[2018-03-07] MEDS: FLUTICASONE/VILANTEROL 100-25MCG/INH INH SCH (09:31)
[2018-03-07 12:45] VITALS: BP 114/75
[2018-03-07] MEDS: SULFAMETH./TRIMETHOPRIM DS 800MG/160MG TABLET PO SCH ×2 (13:56→21:05)
[2018-03-07] MEDS: OXYcodone 5 MG/5 ML ORAL.SOL UDC PO PRN ×2 (16:38→22:48)
[2018-03-07 18:59] VITALS: BP 117/77
[2018-03-07] MEDS: TRAZODONE 50MG TABLET PO PRN (21:15)
[2018-03-08 00:31] VITALS: BP 112/75
[2018-03-08] MEDS: MORPHINE SULFATE 4 MG/ML, 1ML IV PRN ×4 (01:38→22:04)
[2018-03-08] MEDS: ONDANSETRON 2MG/ML, 2ML IVPush PRN ×4 (01:38→22:08)
[2018-03-08] MEDS: OXYcodone 5 MG/5 ML ORAL.SOL UDC PO PRN ×3 (05:08→17:22)
[2018-03-08] MEDS: ENOXAPARIN 40 MG/0.4 ML SQ SCH (05:08)
[2018-03-08] MEDS: CEFTRIAXONE 2 GM in SODIUM CHLORIDE 0.9% 50 ML IV SCH (05:08)
[2018-03-08 05:30] LABS: ALANINE AMINOTRANSFERASE 23 U/L (12-78); ALBUMIN 3.3 g/dL (3.4-5.0); ANION GAP 11 mmol/L (5-15); CHLORIDE 102 mmol/L (98-107); CREATININE 0.28 mg/dL (0.55-1.02)
[2018-03-08 05:33] LABS: ALKALINE PHOSPHATASE 160 U/L (45-117); BILIRUBIN,TOTAL 1.3 mg/dL (0.2-1.0); TOTAL PROTEIN 5.5 g/dL (6.4-8.2)
[2018-03-08 06:12] LABS: BASOPHILS # (AUTO) 0.03 x10^3/uL (0-0.1); BASOPHILS % (AUTO) 0 % (0-1); EOSINOPHILS # (AUTO) 0.17 x10^3/uL (0-0.4); EOSINOPHILS % (AUTO) 2 % (1-7); LYMPHOCYTES # (AUTO) 1.55 x10^3/uL (1-3.4); LYMPHOCYTES % (AUTO) 18 % (22-44); MD NO; MEAN CORPUSCULAR HEMOGLOBIN 36.4 pg (27.0-34.8); MEAN CORPUSCULAR HGB CONC 33.9 g/dL (32.4-35.8); MEAN CORPUSCULAR VOLUME 107.5 fL (80-100); MEAN PLATELET VOLUME 7.4 fL (7.4-10.4); MONOCYTES # (AUTO) 0.98 x10^3/uL (0.2-0.8); MONOCYTES % (AUTO) 11 % (2-9); NEUTROPHILS # (AUTO) 5.82 x10^3/uL (1.8-6.8); NEUTROPHILS % (AUTO) 68 % (42-75); PLATELET COUNT 223 x10^3/uL (130-400); RED CELL DISTRIBUTION WIDTH 16.6 % (9.6-15.2)
[2018-03-08 06:44] VITALS: BP 109/72
[2018-03-08] MEDS: MULTIVITAMIN 1 TABLET PO SCH (08:36)
[2018-03-08] MEDS: FLUTICASONE/VILANTEROL 100-25MCG/INH INH SCH (08:36)
[2018-03-08] MEDS: SPIRONOLACTONE 50 MG TABLET PO SCH (08:36)
[2018-03-08] MEDS: FUROSEMIDE 20 MG TABLET PO SCH (08:37)
[2018-03-08] MEDS: SULFAMETH./TRIMETHOPRIM DS 800MG/160MG TABLET PO SCH ×2 (08:37→22:04)
[2018-03-08] MEDS: POTASSIUM CHLORIDE 20 MEQ TAB.ER.PRT PO SCH ×2 (08:37→17:22)
[2018-03-08] MEDS: THIAMINE 100MG TABLET PO SCH (08:37)
[2018-03-08] MEDS: FOLIC ACID 1 MG TABLET PO SCH (08:37)
[2018-03-08] MEDS: OMEPRAZOLE 20 MG CAPSULE.DR PO SCH (08:37)
[2018-03-08] MEDS: NICOTINE 21 MG/24 HR PATCH.TD24 TD SCH (08:38)
[2018-03-08 08:59] LABS: FOLATE LEVEL > 20.0 ng/mL (3.1-17.5)
[2018-03-08] MEDS: ALBUTEROL SULFATE 2.5 MG/3 ML NPPB SCH ×3 (10:00→20:08)
[2018-03-08 13:22] VITALS: BP 110/79
[2018-03-08 19:27] VITALS: BP 120/79
[2018-03-08] MEDS: TRAZODONE 50MG TABLET PO PRN (23:40)
[2018-03-09 00:22] VITALS: BP 96/64
[2018-03-09] MEDS: OXYcodone 5 MG/5 ML ORAL.SOL UDC PO PRN ×3 (00:27→16:36)
[2018-03-09] MEDS: MORPHINE SULFATE 4 MG/ML, 1ML IV PRN ×5 (05:38→23:02)
[2018-03-09] MEDS: ENOXAPARIN 40 MG/0.4 ML SQ SCH (05:38)
[2018-03-09] MEDS: CEFTRIAXONE 2 GM in SODIUM CHLORIDE 0.9% 50 ML IV SCH (05:38)
[2018-03-09] MEDS: ONDANSETRON 2MG/ML, 2ML IVPush PRN ×4 (05:47→18:46)
[2018-03-09 06:00] LABS: CHLORIDE 103 mmol/L (98-107)
[2018-03-09 06:29] LABS: ALANINE AMINOTRANSFERASE 24 U/L (12-78); ALBUMIN 3.4 g/dL (3.4-5.0); ALKALINE PHOSPHATASE 168 U/L (45-117); ANION GAP 12 mmol/L (5-15); BILIRUBIN,TOTAL 1.4 mg/dL (0.2-1.0); CALCIUM 8.1 mg/dL (8.5-10.1); CREATININE 0.35 mg/dL (0.55-1.02); TOTAL PROTEIN 5.6 g/dL (6.4-8.2)
[2018-03-09 06:51] VITALS: BP 95/61
[2018-03-09 07:38] LABS: BASOPHILS # (AUTO) 0.05 x10^3/uL (0-0.1); BASOPHILS % (AUTO) 1 % (0-1); EOSINOPHILS # (AUTO) 0.13 x10^3/uL (0-0.4); EOSINOPHILS % (AUTO) 2 % (1-7); LYMPHOCYTES # (AUTO) 1.38 x10^3/uL (1-3.4); LYMPHOCYTES % (AUTO) 17 % (22-44); MD SCAN; MEAN CORPUSCULAR HEMOGLOBIN 37.1 pg (27.0-34.8); MEAN CORPUSCULAR HGB CONC 34.1 g/dL (32.4-35.8); MEAN CORPUSCULAR VOLUME 108.9 fL (80-100); MEAN PLATELET VOLUME 7.1 fL (7.4-10.4); MONOCYTES # (AUTO) 0.79 x10^3/uL (0.2-0.8); MONOCYTES % (AUTO) 10 % (2-9); NEUTROPHILS # (AUTO) 5.91 x10^3/uL (1.8-6.8); NEUTROPHILS % (AUTO) 72 % (42-75); PLATELET COUNT 217 x10^3/uL (130-400); RED BLOOD COUNT 3.05 x10^6/uL (3.82-5.3); RED CELL DISTRIBUTION WIDTH 16.1 % (9.6-15.2)
[2018-03-09] MEDS: ALBUTEROL SULFATE 2.5 MG/3 ML NPPB SCH ×3 (08:05→21:20)
[2018-03-09] MEDS: THIAMINE 100MG TABLET PO SCH (08:19)
[2018-03-09] MEDS: NICOTINE 21 MG/24 HR PATCH.TD24 TD SCH (08:19)
[2018-03-09] MEDS: POTASSIUM CHLORIDE 20 MEQ TAB.ER.PRT PO SCH ×2 (08:19→16:36)
[2018-03-09] MEDS: OMEPRAZOLE 20 MG CAPSULE.DR PO SCH (08:19)
[2018-03-09] MEDS: SPIRONOLACTONE 50 MG TABLET PO SCH (08:19)
[2018-03-09] MEDS: MULTIVITAMIN 1 TABLET PO SCH (08:20)
[2018-03-09] MEDS: FOLIC ACID 1 MG TABLET PO SCH (08:20)
[2018-03-09] MEDS: SULFAMETH./TRIMETHOPRIM DS 800MG/160MG TABLET PO SCH ×2 (08:20→21:14)
[2018-03-09] MEDS: FUROSEMIDE 20 MG TABLET PO SCH (08:20)
[2018-03-09] MEDS ORDERED: GABAPENTIN 100 MG CAPSULE ONE (08:38)
[2018-03-09] MEDS: GABAPENTIN 100 MG CAPSULE PO SCH ×3 (08:38→21:14)
[2018-03-09] MEDS: FLUTICASONE/VILANTEROL 100-25MCG/INH INH SCH (10:26)
[2018-03-09 12:33] VITALS: BP 124/83
[2018-03-09 19:38] VITALS: BP 94/63
[2018-03-09] MEDS: TRAZODONE 50MG TABLET PO PRN (21:14)
[2018-03-10] MEDS: OXYcodone 5 MG/5 ML ORAL.SOL UDC PO PRN ×4 (00:01→23:06)
[2018-03-10 00:04] VITALS: BP 110/76
[2018-03-10] MEDS: MORPHINE SULFATE 4 MG/ML, 1ML IV PRN ×4 (04:42→18:42)
[2018-03-10] MEDS: CEFTRIAXONE 2 GM in SODIUM CHLORIDE 0.9% 50 ML IV SCH (04:42)
[2018-03-10] MEDS: ONDANSETRON 2MG/ML, 2ML IVPush PRN ×4 (04:48→18:42)
[2018-03-10 05:43] LABS: BASOPHILS # (AUTO) 0.04 x10^3/uL (0-0.1); BASOPHILS % (AUTO) 0 % (0-1); EOSINOPHILS # (AUTO) 0.12 x10^3/uL (0-0.4); EOSINOPHILS % (AUTO) 1 % (1-7); LYMPHOCYTES # (AUTO) 1.68 x10^3/uL (1-3.4); LYMPHOCYTES % (AUTO) 20 % (22-44); MD NO; MEAN CORPUSCULAR HEMOGLOBIN 36.8 pg (27.0-34.8); MEAN CORPUSCULAR HGB CONC 34.1 g/dL (32.4-35.8); MEAN PLATELET VOLUME 7.9 fL (7.4-10.4); MONOCYTES # (AUTO) 1.02 x10^3/uL (0.2-0.8); MONOCYTES % (AUTO) 12 % (2-9); NEUTROPHILS # (AUTO) 5.57 x10^3/uL (1.8-6.8); NEUTROPHILS % (AUTO) 66 % (42-75); PLATELET COUNT 250 x10^3/uL (130-400); RED BLOOD COUNT 3.16 x10^6/uL (3.82-5.3); RED CELL DISTRIBUTION WIDTH 16.3 % (9.6-15.2)
[2018-03-10 05:52] LABS: ALBUMIN 3.2 g/dL (3.4-5.0); ANION GAP 8 mmol/L (5-15); CHLORIDE 101 mmol/L (98-107)
[2018-03-10 05:56] LABS: ALANINE AMINOTRANSFERASE 31 U/L (12-78); ALKALINE PHOSPHATASE 194 U/L (45-117); BILIRUBIN,TOTAL 1.5 mg/dL (0.2-1.0); TOTAL PROTEIN 5.8 g/dL (6.4-8.2)
[2018-03-10 06:44] VITALS: BP 112/79
[2018-03-10 07:13] VITALS: BP 134/77
[2018-03-10] MEDS: ALBUTEROL SULFATE 2.5 MG/3 ML NPPB SCH ×3 (07:29→20:37)
[2018-03-10] MEDS: FLUTICASONE/VILANTEROL 100-25MCG/INH INH SCH (08:37)
[2018-03-10] MEDS: MULTIVITAMIN 1 TABLET PO SCH (08:37)
[2018-03-10] MEDS: SULFAMETH./TRIMETHOPRIM DS 800MG/160MG TABLET PO SCH ×2 (08:37→23:06)
[2018-03-10] MEDS: FOLIC ACID 1 MG TABLET PO SCH (08:37)
[2018-03-10] MEDS: POTASSIUM CHLORIDE 20 MEQ TAB.ER.PRT PO SCH ×2 (08:38→17:04)
[2018-03-10] MEDS: THIAMINE 100MG TABLET PO SCH (08:38)
[2018-03-10] MEDS: GABAPENTIN 300 MG CAPSULE PO SCH ×3 (08:38→23:06)
[2018-03-10] MEDS: NICOTINE 21 MG/24 HR PATCH.TD24 TD SCH (08:38)
[2018-03-10] MEDS: OMEPRAZOLE 20 MG CAPSULE.DR PO SCH (08:39)
[2018-03-10] MEDS ORDERED: LORazepam 0.5MG TABLET PO ONE (09:00)
[2018-03-10 13:46] VITALS: BP 97/66
[2018-03-10] MEDS ORDERED: LIDOCAINE-MPF 2%, 2ML ONE (13:56)
[2018-03-10] MEDS ORDERED: LORazepam 0.5MG TABLET ONE (14:04)
[2018-03-10 20:13] VITALS: BP 97/61
[2018-03-10] MEDS: TRAZODONE 50MG TABLET PO PRN (23:06)
[2018-03-11] MEDS: MORPHINE SULFATE 4 MG/ML, 1ML IV PRN ×3 (01:19→18:51)
[2018-03-11] MEDS: ONDANSETRON 2MG/ML, 2ML IVPush PRN ×3 (01:41→18:51)
[2018-03-11 01:47] VITALS: BP 93/62
[2018-03-11 04:32] LABS: BASOPHILS # (AUTO) 0.03 x10^3/uL (0-0.1); BASOPHILS % (AUTO) 0 % (0-1); EOSINOPHILS # (AUTO) 0.09 x10^3/uL (0-0.4); EOSINOPHILS % (AUTO) 1 % (1-7); LYMPHOCYTES # (AUTO) 1.78 x10^3/uL (1-3.4); LYMPHOCYTES % (AUTO) 23 % (22-44); MD NO; MEAN CORPUSCULAR HGB CONC 34.4 g/dL (32.4-35.8); MEAN CORPUSCULAR VOLUME 107.5 fL (80-100); MEAN PLATELET VOLUME 7.8 fL (7.4-10.4); MONOCYTES # (AUTO) 0.95 x10^3/uL (0.2-0.8); MONOCYTES % (AUTO) 12 % (2-9); NEUTROPHILS # (AUTO) 5.03 x10^3/uL (1.8-6.8); NEUTROPHILS % (AUTO) 64 % (42-75); PLATELET COUNT 217 x10^3/uL (130-400); RED BLOOD COUNT 3.07 x10^6/uL (3.82-5.3)
[2018-03-11 04:45] LABS: CHLORIDE 102 mmol/L (98-107)
[2018-03-11 04:51] LABS: ALANINE AMINOTRANSFERASE 32 U/L (12-78); ALBUMIN 2.9 g/dL (3.4-5.0); ALKALINE PHOSPHATASE 171 U/L (45-117); ANION GAP 6 mmol/L (5-15); BILIRUBIN,TOTAL 1.2 mg/dL (0.2-1.0); CREATININE 0.41 mg/dL (0.55-1.02); TOTAL PROTEIN 5.2 g/dL (6.4-8.2)
[2018-03-11] MEDS: OXYcodone 5 MG/5 ML ORAL.SOL UDC PO PRN ×2 (05:17→16:47)
[2018-03-11] MEDS: CEFTRIAXONE 2 GM in SODIUM CHLORIDE 0.9% 50 ML IV SCH (05:17)
[2018-03-11 06:36] VITALS: BP 92/54
[2018-03-11] MEDS: ALBUTEROL SULFATE 2.5 MG/3 ML NPPB SCH ×3 (09:00→20:55)
[2018-03-11] MEDS: OMEPRAZOLE 20 MG CAPSULE.DR PO SCH (10:36)
[2018-03-11] MEDS: FOLIC ACID 1 MG TABLET PO SCH (10:36)
[2018-03-11] MEDS: MULTIVITAMIN 1 TABLET PO SCH (10:36)
[2018-03-11] MEDS: NICOTINE 21 MG/24 HR PATCH.TD24 TD SCH (10:36)
[2018-03-11] MEDS: GABAPENTIN 300 MG CAPSULE PO SCH ×3 (10:36→20:20)
[2018-03-11] MEDS: THIAMINE 100MG TABLET PO SCH (10:36)
[2018-03-11] MEDS: POTASSIUM CHLORIDE 20 MEQ TAB.ER.PRT PO SCH (10:36)
[2018-03-11] MEDS: SULFAMETH./TRIMETHOPRIM DS 800MG/160MG TABLET PO SCH ×2 (10:49→20:19)
[2018-03-11] MEDS: FLUTICASONE/VILANTEROL 100-25MCG/INH INH SCH (10:49)
[2018-03-11] MEDS: ENOXAPARIN 40 MG/0.4 ML SQ SCH (13:28)
[2018-03-11 16:25] VITALS: BP 100/64
[2018-03-11 19:26] VITALS: BP 93/61
[2018-03-11] MEDS: TRAZODONE 50MG TABLET PO PRN (21:04)
[2018-03-12] MEDS: OXYcodone 5 MG/5 ML ORAL.SOL UDC PO PRN ×4 (01:56→23:13)
[2018-03-12 02:12] VITALS: BP 112/76
[2018-03-12] MEDS: CEFTRIAXONE 2 GM in SODIUM CHLORIDE 0.9% 50 ML IV SCH (05:00)
[2018-03-12] MEDS: GABAPENTIN 300 MG CAPSULE PO SCH ×3 (05:04→20:34)
[2018-03-12 05:08] LABS: BASOPHILS # (AUTO) 0.03 x10^3/uL (0-0.1); BASOPHILS % (AUTO) 0 % (0-1); EOSINOPHILS # (AUTO) 0.07 x10^3/uL (0-0.4); EOSINOPHILS % (AUTO) 1 % (1-7); LYMPHOCYTES # (AUTO) 1.97 x10^3/uL (1-3.4); LYMPHOCYTES % (AUTO) 23 % (22-44); MD NO; MEAN CORPUSCULAR HEMOGLOBIN 36.3 pg (27.0-34.8); MEAN CORPUSCULAR HGB CONC 33.7 g/dL (32.4-35.8); MEAN CORPUSCULAR VOLUME 107.6 fL (80-100); MEAN PLATELET VOLUME 7.9 fL (7.4-10.4); MONOCYTES # (AUTO) 0.94 x10^3/uL (0.2-0.8); MONOCYTES % (AUTO) 11 % (2-9); NEUTROPHILS # (AUTO) 5.65 x10^3/uL (1.8-6.8); NEUTROPHILS % (AUTO) 65 % (42-75); PLATELET COUNT 253 x10^3/uL (130-400); RED BLOOD COUNT 3.03 x10^6/uL (3.82-5.3); RED CELL DISTRIBUTION WIDTH 15.9 % (9.6-15.2)
[2018-03-12 05:34] LABS: ALANINE AMINOTRANSFERASE 32 U/L (12-78); ALBUMIN 2.7 g/dL (3.4-5.0); ANION GAP 6 mmol/L (5-15); CHLORIDE 105 mmol/L (98-107); CREATININE 0.39 mg/dL (0.55-1.02)
[2018-03-12 05:37] LABS: ALKALINE PHOSPHATASE 166 U/L (45-117); BILIRUBIN,TOTAL 1.3 mg/dL (0.2-1.0)
[2018-03-12] MEDS: ALBUTEROL SULFATE 2.5 MG/3 ML NPPB SCH ×3 (06:51→18:55)
[2018-03-12 07:54] VITALS: BP 95/59
[2018-03-12] MEDS: NICOTINE 21 MG/24 HR PATCH.TD24 TD SCH (09:13)
[2018-03-12] MEDS: FOLIC ACID 1 MG TABLET PO SCH (09:14)
[2018-03-12] MEDS: THIAMINE 100MG TABLET PO SCH (09:14)
[2018-03-12] MEDS: SULFAMETH./TRIMETHOPRIM DS 800MG/160MG TABLET PO SCH ×2 (09:14→20:34)
[2018-03-12] MEDS: FLUTICASONE/VILANTEROL 100-25MCG/INH INH SCH (09:14)
[2018-03-12] MEDS: OMEPRAZOLE 20 MG CAPSULE.DR PO SCH (09:14)
[2018-03-12] MEDS: MULTIVITAMIN 1 TABLET PO SCH (09:14)
[2018-03-12] MEDS: MORPHINE SULFATE 4 MG/ML, 1ML IV PRN ×2 (11:03→15:24)
[2018-03-12] MEDS: ENOXAPARIN 40 MG/0.4 ML SQ SCH (13:08)
[2018-03-12] MEDS: FUROSEMIDE 20 MG TABLET PO SCH (13:08)
[2018-03-12] MEDS ORDERED: LIDOCAINE-MPF 2%, 2ML ONE (13:48)
[2018-03-12 14:00] VITALS: BP 93/59
[2018-03-12 20:02] VITALS: BP 91/58
[2018-03-12] MEDS ORDERED: ONDANSETRON ODT 4 MG ONE (20:47)
[2018-03-12] MEDS: TRAZODONE 50MG TABLET PO PRN (20:50)
[2018-03-12] MEDS ORDERED: ONDANSETRON ODT 4 MG PO PRN (21:00)
[2018-03-13 01:53] VITALS: BP 92/59
[2018-03-13] MEDS: MORPHINE SULFATE 4 MG/ML, 1ML IV PRN (04:40)
[2018-03-13] MEDS ORDERED: CEFTRIAXONE 2 GM in SODIUM CHLORIDE 0.9% 50 ML IV SCH (05:00)
[2018-03-13 05:49] LABS: BASOPHILS # (AUTO) 0.02 x10^3/uL (0-0.1); BASOPHILS % (AUTO) 0 % (0-1); EOSINOPHILS # (AUTO) 0.05 x10^3/uL (0-0.4); EOSINOPHILS % (AUTO) 1 % (1-7); LYMPHOCYTES # (AUTO) 2.12 x10^3/uL (1-3.4); LYMPHOCYTES % (AUTO) 24 % (22-44); MD NO; MEAN CORPUSCULAR HEMOGLOBIN 36.5 pg (27.0-34.8); MEAN CORPUSCULAR HGB CONC 34.3 g/dL (32.4-35.8); MEAN CORPUSCULAR VOLUME 106.3 fL (80-100); MEAN PLATELET VOLUME 7.9 fL (7.4-10.4); MONOCYTES # (AUTO) 0.95 x10^3/uL (0.2-0.8); MONOCYTES % (AUTO) 11 % (2-9); NEUTROPHILS % (AUTO) 65 % (42-75); PLATELET COUNT 277 x10^3/uL (130-400); RED BLOOD COUNT 2.88 x10^6/uL (3.82-5.3); RED CELL DISTRIBUTION WIDTH 16.3 % (9.6-15.2)
[2018-03-13 05:56] LABS: ALANINE AMINOTRANSFERASE 30 U/L (12-78); ALBUMIN 2.5 g/dL (3.4-5.0); ANION GAP 7 mmol/L (5-15); CALCIUM 7.8 mg/dL (8.5-10.1); CHLORIDE 105 mmol/L (98-107); CREATININE 0.39 mg/dL (0.55-1.02)
[2018-03-13 05:58] LABS: ALKALINE PHOSPHATASE 162 U/L (45-117); BILIRUBIN,TOTAL 0.9 mg/dL (0.2-1.0); TOTAL PROTEIN 4.9 g/dL (6.4-8.2)
[2018-03-13] MEDS: ALBUTEROL SULFATE 2.5 MG/3 ML NPPB SCH (06:38)
[2018-03-13 06:43] VITALS: BP 99/61
[2018-03-13] MEDS: GABAPENTIN 300 MG CAPSULE PO SCH (08:20)
[2018-03-13] MEDS: MULTIVITAMIN 1 TABLET PO SCH (08:20)
[2018-03-13] MEDS: SULFAMETH./TRIMETHOPRIM DS 800MG/160MG TABLET PO SCH ×2 (08:20→10:52)
[2018-03-13] MEDS: FUROSEMIDE 20 MG TABLET PO SCH (08:20)
[2018-03-13] MEDS: OXYcodone 5 MG/5 ML ORAL.SOL UDC PO PRN (08:20)
[2018-03-13] MEDS: THIAMINE 100MG TABLET PO SCH (08:20)
[2018-03-13] MEDS: OMEPRAZOLE 20 MG CAPSULE.DR PO SCH (08:21)
[2018-03-13] MEDS: NICOTINE 21 MG/24 HR PATCH.TD24 TD SCH (08:21)
[2018-03-13] MEDS: FOLIC ACID 1 MG TABLET PO SCH (08:21)
[2018-03-13] MEDS: FLUTICASONE/VILANTEROL 100-25MCG/INH INH SCH (09:26)
[2018-03-13] MEDS ORDERED: FOLI-17 PO (10:39)
[2018-03-13] MEDS ORDERED: CEFD300C37 PO (10:39)
[2018-03-13] MEDS ORDERED: THIA100T67 PO (10:39)
[2018-03-13] MEDS ORDERED: SPIR50TA4 PO (10:39)
[2018-03-13] MEDS ORDERED: FURO20TA3 PO (10:39)
[2018-03-13] MEDS ORDERED: MULT1TAB60 PO (10:39)
== END 2018-03-13 12:20 | disposition home or self-care (01) | DRG 871 ==
LOC: ED 23:59 → EDIP 03-05 03:38 → 4WST 03-05 04:32 → DCLOUNGE 03-13 12:01
PROVIDERS: ADMIT Hospitalist; ATTEND Hospitalist
PROC: 0W9G3ZZ Drainage of Peritoneal Cavity, Percutaneous Approach (ICD-10-PCS; principal; 2018-03-05)
PROC: 0W9G3ZZ Drainage of Peritoneal Cavity, Percutaneous Approach (ICD-10-PCS; 2018-03-10)
PROC: 0W9G3ZZ Drainage of Peritoneal Cavity, Percutaneous Approach (ICD-10-PCS; 2018-03-12)
DX: A41.9 Sepsis, unspecified organism (principal); K65.2 Spontaneous bacterial peritonitis; K85.20 Alcohol induced acute pancreatitis without necrosis or infection; E44.0 Moderate protein-calorie malnutrition; E87.1 Hypo-osmolality and hyponatremia; D68.9 Coagulation defect, unspecified; K86.1 Other chronic pancreatitis; N39.0 Urinary tract infection, site not specified; N10 Acute pyelonephritis; Z68.30 Body mass index [BMI] 30.0-30.9, adult; Z88.8 Allergy status to other drugs, medicaments and biological substances; Z91.018 Allergy to other foods; E83.39 Other disorders of phosphorus metabolism; E87.6 Hypokalemia; F10.20 Alcohol dependence, uncomplicated; Y90.9 Presence of alcohol in blood, level not specified; F17.210 Nicotine dependence, cigarettes, uncomplicated; F32.9 Major depressive disorder, single episode, unspecified; F41.9 Anxiety disorder, unspecified; G62.9 Polyneuropathy, unspecified; G89.29 Other chronic pain; M54.9 Dorsalgia, unspecified; J44.9 Chronic obstructive pulmonary disease, unspecified; K70.11 Alcoholic hepatitis with ascites; K70.31 Alcoholic cirrhosis of liver with ascites; K76.0 Fatty (change of) liver, not elsewhere classified; Z71.41 Alcohol abuse counseling and surveillance of alcoholic; M19.90 Unspecified osteoarthritis, unspecified site; R56.9 Unspecified convulsions
CPT/HCPCS: 36415; 49083; 74178; 76700; 80048; 80053; 80061; 80307; 81001; 82042; 82140; 82607; 82746; 82962; 83605; 83615; 83690; 83735; 83930; 83935; 84100; 84145; 84439; 84443; 85025; 85610; 85730; 87040; 87070; 87077; 87086; 87186; 87205; 89051; 93005; 93970; 94640; 96361; 96365; 96375; 99285; J0696; J1650; J2405; J3480; J3490; J7613; P9045; P9047; Q0162; Q9967; J2060; J7030; J7040

== ENCOUNTER 2018-03-16 12:24 | Inpatient (IN) | payer MEDICARE ==
[~2018-03-16] VITALS: Ht 160 cm; Wt 66.5 kg
[~2018-03-16 12:24] MED LIST changes: +FOLI-17 PO; +FURO20TA3 PO; +SPIR50TA4 PO; +THIA100T67 PO
[2018-03-16] MEDS ORDERED: SODIUM CHLORIDE 0.9% 1,000 ML IV ONE (13:13)
[2018-03-16] MEDS ORDERED: FAMOTIDINE 20 MG/2 ML IVP ONE (13:30)
[2018-03-16] MEDS ORDERED: ONDANSETRON 2MG/ML, 2ML IVPush ONE (13:30)
[2018-03-16] MEDS ORDERED: SODIUM CHLORIDE 0.9% 1,000ML IVBOLUS ONE (13:30)
[2018-03-16] MEDS ORDERED: ONDANSETRON 2MG/ML, 2ML ONE (13:55)
[2018-03-16] MEDS ORDERED: FAMOTIDINE 20 MG/2 ML ONE (13:55)
[2018-03-16] MEDS ORDERED: MORPHINE SULFATE 4 MG/ML, 1ML ONE (13:56)
[2018-03-16] MEDS: MORPHINE SULFATE 4 MG/ML, 1ML IVPush PRN ×2 (14:45→18:41)
[2018-03-16 14:58] LABS: CLOSTRIDIUM DIFFICILE ANTIGEN NEGATIVE; CLOSTRIDIUM DIFFICILE TOXIN NEGATIVE (Negative)
[2018-03-16 15:14] LABS: ALANINE AMINOTRANSFERASE 34 U/L (12-78); ANION GAP 9 mmol/L (5-15); CALCIUM 8.4 mg/dL (8.5-10.1); CHLORIDE 103 mmol/L (98-107); CREATININE 0.35 mg/dL (0.55-1.02)
[2018-03-16 15:16] LABS: ALKALINE PHOSPHATASE 206 U/L (45-117); TOTAL PROTEIN 5.9 g/dL (6.4-8.2)
[2018-03-16 15:34] LABS: BASOPHILS # (AUTO) 0.03 x10^3/uL (0-0.1); BASOPHILS % (AUTO) 0 % (0-1); EOSINOPHILS # (AUTO) 0.02 x10^3/uL (0-0.4); EOSINOPHILS % (AUTO) 0 % (1-7); LYMPHOCYTES # (AUTO) 2.68 x10^3/uL (1-3.4); LYMPHOCYTES % (AUTO) 20 % (22-44); MD MORPH REVIEW ONLY; MEAN CORPUSCULAR HEMOGLOBIN 36.7 pg (27.0-34.8); MEAN CORPUSCULAR HGB CONC 34.3 g/dL (32.4-35.8); MEAN CORPUSCULAR VOLUME 107.1 fL (80-100); MEAN PLATELET VOLUME 7.2 fL (7.4-10.4); MONOCYTES # (AUTO) 0.83 x10^3/uL (0.2-0.8); MONOCYTES % (AUTO) 6 % (2-9); NEUTROPHILS # (AUTO) 9.59 x10^3/uL (1.8-6.8); NEUTROPHILS % (AUTO) 73 % (42-75); PLATELET COUNT 497 x10^3/uL (130-400); RED BLOOD COUNT 3.26 x10^6/uL (3.82-5.3); RED CELL DISTRIBUTION WIDTH 16.2 % (9.6-15.2)
[2018-03-16 15:35] LABS: ANISOCYTOSIS 1+
[2018-03-16 15:36] LABS: <PLATELET ESTIMATE> INCREASED; <PLT MORPHOLOGY> NORMAL PLT MORPH; TARGET CELLS 1+
[2018-03-16 15:48] LABS: MICROSCOPIC NOT IND
[2018-03-16 15:49] LABS: CULTURE INDICATED? NO
[2018-03-16] MEDS ORDERED: BUDE10.2 INH (16:29)
[2018-03-16] MEDS ORDERED: ACET325T14 PO (16:30)
[2018-03-16 17:33] VITALS: BP 109/67
[2018-03-16] MEDS ORDERED: ALBUTEROL SULFATE 2.5 MG/3 ML ONE (17:59)
[2018-03-16] MEDS ORDERED: POTASSIUM CHLORIDE 20 MEQ TAB.ER.PRT PO ONE ×2 (18:00→23:00)
[2018-03-16] MEDS ORDERED: LABETALOL 5MG/ML, 20ML IVPush PRN (18:00)
[2018-03-16] MEDS ORDERED: OMNIPAQUE 350 MG/ML, 100ML BOTTLE ONE (18:06)
[2018-03-16 18:18] LABS: FREE T4 (FREE THYROXINE) 1.09 ng/dL (0.76-1.46)
[2018-03-16] MEDS: D5%-0.45NACL+KCL 20MEQ 1,000 ML IV SCH (18:44)
[2018-03-16] MEDS: HEPARIN 5,000 UNITS/ML, 1ML SQ SCH (18:50)
[2018-03-16 19:30] VITALS: BP 114/75
[2018-03-16] MEDS: (Budesonide/Formoterol Fumarate (Symbicort 160-4.5 Mcg Inhaler INH SCH (20:00)
[2018-03-16] MEDS: ALBUTEROL SULFATE INH SCH (20:00)
[2018-03-16] MEDS: NICOTINE 21 MG/24 HR PATCH.TD24 TD SCH (20:01)
[2018-03-16] MEDS: morphine SULFATE 10 MG/ML, 1ML IVPush PRN (22:55)
[2018-03-16] MEDS: TRAZODONE 50MG TABLET PO PRN (23:24)
[2018-03-17 01:23] VITALS: BP 117/76
[2018-03-17] MEDS: HEPARIN 5,000 UNITS/ML, 1ML SQ SCH ×3 (01:47→16:20)
[2018-03-17] MEDS: morphine SULFATE 10 MG/ML, 1ML IVPush PRN ×5 (03:24→20:40)
[2018-03-17] MEDS: D5%-0.45NACL+KCL 20MEQ 1,000 ML IV SCH ×2 (05:41→19:19)
[2018-03-17 07:04] LABS: BASOPHILS # (AUTO) 0.16 x10^3/uL (0-0.1); BASOPHILS % (AUTO) 2 % (0-1); EOSINOPHILS # (AUTO) 0.13 x10^3/uL (0-0.4); EOSINOPHILS % (AUTO) 1 % (1-7); LYMPHOCYTES # (AUTO) 3.64 x10^3/uL (1-3.4); LYMPHOCYTES % (AUTO) 34 % (22-44); MD NO; MEAN CORPUSCULAR HEMOGLOBIN 35.3 pg (27.0-34.8); MEAN CORPUSCULAR HGB CONC 33.3 g/dL (32.4-35.8); MEAN CORPUSCULAR VOLUME 106.1 fL (80-100); MEAN PLATELET VOLUME 7.4 fL (7.4-10.4); MONOCYTES % (AUTO) 3 % (2-9); NEUTROPHILS # (AUTO) 6.54 x10^3/uL (1.8-6.8); NEUTROPHILS % (AUTO) 61 % (42-75); PLATELET COUNT 406 x10^3/uL (130-400); RED BLOOD COUNT 3.14 x10^6/uL (3.82-5.3)
[2018-03-17 07:06] LABS: CHLORIDE 108 mmol/L (98-107)
[2018-03-17 07:20] VITALS: BP 125/84
[2018-03-17 07:23] LABS: ALANINE AMINOTRANSFERASE 32 U/L (12-78); ALBUMIN 2.7 g/dL (3.4-5.0); ALKALINE PHOSPHATASE 168 U/L (45-117); ANION GAP 9 mmol/L (5-15); BILIRUBIN,TOTAL 0.7 mg/dL (0.2-1.0); CALCIUM 7.4 mg/dL (8.5-10.1); TOTAL PROTEIN 5.3 g/dL (6.4-8.2)
[2018-03-17] MEDS: (Budesonide/Formoterol Fumarate (Symbicort 160-4.5 Mcg Inhaler INH SCH (09:00)
[2018-03-17] MEDS: ALBUTEROL SULFATE INH SCH ×3 (09:00→21:00)
[2018-03-17] MEDS: ALBUTEROL SULFATE 2.5 MG/3 ML NPPB SCH ×3 (09:00→19:27)
[2018-03-17] MEDS: NICOTINE 21 MG/24 HR PATCH.TD24 TD SCH (09:37)
[2018-03-17] MEDS: THIAMINE 100MG TABLET PO SCH (09:37)
[2018-03-17] MEDS: FOLIC ACID 1 MG TABLET PO SCH (09:37)
[2018-03-17] MEDS: MULTIVITAMIN 1 TABLET PO SCH (09:37)
[2018-03-17] MEDS: ONDANSETRON ODT 4 MG PO PRN (10:52)
[2018-03-17 13:19] VITALS: BP 108/70
[2018-03-17] MEDS ORDERED: LIDOCAINE-MPF 2%, 2ML ONE (17:11)
[2018-03-17] MEDS ORDERED: MAGNESIUM SULFATE 3 GM in SODIUM CHLORIDE 0.9% 100 ML IV ONE (19:00)
[2018-03-17] MEDS ORDERED: POTASSIUM CHLORIDE 40 MEQ in SODIUM CHLORIDE 0.9% 500 ML IV ONE (19:30)
[2018-03-17 19:40] VITALS: BP 103/70
[2018-03-17] MEDS: NEUTRA PHOS K 250 MG TABLET PO SCH (20:39)
[2018-03-17] MEDS: ONDANSETRON 2MG/ML, 2ML IVPush PRN (21:43)
[2018-03-18] MEDS ORDERED: MORPHINE SULFATE 4 MG/ML, 1ML ONE ×2 (00:35→04:28)
[2018-03-18] MEDS: morphine SULFATE 10 MG/ML, 1ML IVPush PRN ×6 (00:40→21:30)
[2018-03-18] MEDS: HEPARIN 5,000 UNITS/ML, 1ML SQ SCH ×3 (00:53→17:16)
[2018-03-18] MEDS: ALBUTEROL SULFATE 2.5 MG/3 ML NPPB PRN (01:02)
[2018-03-18 01:23] VITALS: BP 110/71
[2018-03-18] MEDS: ONDANSETRON 2MG/ML, 2ML IVPush PRN (04:40)
[2018-03-18 05:58] LABS: BASOPHILS # (AUTO) 0.13 x10^3/uL (0-0.1); BASOPHILS % (AUTO) 1 % (0-1); EOSINOPHILS # (AUTO) 0.07 x10^3/uL (0-0.4); EOSINOPHILS % (AUTO) 1 % (1-7); LYMPHOCYTES # (AUTO) 2.77 x10^3/uL (1-3.4); LYMPHOCYTES % (AUTO) 27 % (22-44); MD NO; MEAN CORPUSCULAR HEMOGLOBIN 35.7 pg (27.0-34.8); MEAN CORPUSCULAR HGB CONC 33.7 g/dL (32.4-35.8); MEAN PLATELET VOLUME 6.9 fL (7.4-10.4); MONOCYTES # (AUTO) 0.54 x10^3/uL (0.2-0.8); MONOCYTES % (AUTO) 5 % (2-9); NEUTROPHILS # (AUTO) 6.87 x10^3/uL (1.8-6.8); NEUTROPHILS % (AUTO) 66 % (42-75); PLATELET COUNT 404 x10^3/uL (130-400); RED BLOOD COUNT 3.38 x10^6/uL (3.82-5.3); RED CELL DISTRIBUTION WIDTH 15.9 % (9.6-15.2)
[2018-03-18 06:12] LABS: ALBUMIN 2.8 g/dL (3.4-5.0); ANION GAP 10 mmol/L (5-15); CALCIUM 7.8 mg/dL (8.5-10.1); CHLORIDE 107 mmol/L (98-107)
[2018-03-18 06:40] LABS: ALANINE AMINOTRANSFERASE 30 U/L (12-78); ALKALINE PHOSPHATASE 169 U/L (45-117); BILIRUBIN,TOTAL 0.8 mg/dL (0.2-1.0); CREATININE 0.32 mg/dL (0.55-1.02); TOTAL PROTEIN 5.5 g/dL (6.4-8.2)
[2018-03-18 06:45] LABS: FOLATE LEVEL > 20.0 ng/mL (3.1-17.5)
[2018-03-18 07:52] VITALS: BP 115/77
[2018-03-18] MEDS: ALBUTEROL SULFATE 2.5 MG/3 ML NPPB SCH ×3 (08:04→20:14)
[2018-03-18] MEDS ORDERED: CEFTRIAXONE 2 GM in SODIUM CHLORIDE 0.9% 50 ML IV SCH (08:30)
[2018-03-18] MEDS: ALBUTEROL SULFATE INH SCH ×3 (09:00→21:00)
[2018-03-18] MEDS ORDERED: methylPREDNISolone SOD SUCC 125 MG/2 ML ONE (09:06)
[2018-03-18] MEDS ORDERED: FAMOTIDINE 20 MG/2 ML ONE (09:07)
[2018-03-18] MEDS ORDERED: FUROSEMIDE 20 MG/2 ML ONE (09:08)
[2018-03-18] MEDS: ALBUMIN HUMAN 25% 100 ML IV SCH ×2 (09:29→17:15)
[2018-03-18] MEDS ORDERED: DIPHENHYDRAMINE 50 MG/ML, 1ML IVPush ONE (09:30)
[2018-03-18] MEDS ORDERED: FAMOTIDINE 20 MG/2 ML IVPush ONE (09:30)
[2018-03-18] MEDS ORDERED: methylPREDNISolone SOD SUCC 125 MG/2 ML IVPush ONE (09:30)
[2018-03-18] MEDS: NICOTINE 21 MG/24 HR PATCH.TD24 TD SCH (09:35)
[2018-03-18] MEDS: NEUTRA PHOS K 250 MG TABLET PO SCH ×2 (09:41→21:30)
[2018-03-18] MEDS: MULTIVITAMIN 1 TABLET PO SCH (09:41)
[2018-03-18] MEDS: FOLIC ACID 1 MG TABLET PO SCH (09:41)
[2018-03-18] MEDS: THIAMINE 100MG TABLET PO SCH (09:41)
[2018-03-18] MEDS: FLUTICASONE/VILANTEROL 200-25MCG/INH INH SCH (10:26)
[2018-03-18 14:04] VITALS: BP 108/72
[2018-03-18] MEDS: D5%-0.45NACL+KCL 20MEQ 1,000 ML IV SCH (15:05)
[2018-03-18 19:27] VITALS: BP 102/67
[2018-03-18] MEDS: TRAZODONE 50MG TABLET PO PRN (21:36)
[2018-03-19] MEDS: ONDANSETRON ODT 4 MG PO PRN (00:14)
[2018-03-19 00:39] VITALS: BP 102/62
[2018-03-19] MEDS: ALBUMIN HUMAN 25% 100 ML IV SCH ×3 (01:23→17:14)
[2018-03-19] MEDS: D5%-0.45NACL+KCL 20MEQ 1,000 ML IV SCH ×2 (01:23→13:25)
[2018-03-19] MEDS: HEPARIN 5,000 UNITS/ML, 1ML SQ SCH ×3 (01:23→17:14)
[2018-03-19] MEDS: morphine SULFATE 10 MG/ML, 1ML IVPush PRN ×3 (01:39→09:51)
[2018-03-19 05:35] LABS: BASOPHILS # (AUTO) 0.11 x10^3/uL (0-0.1); BASOPHILS % (AUTO) 1 % (0-1); EOSINOPHILS # (AUTO) 0.01 x10^3/uL (0-0.4); EOSINOPHILS % (AUTO) 0 % (1-7); LYMPHOCYTES # (AUTO) 2.14 x10^3/uL (1-3.4); LYMPHOCYTES % (AUTO) 19 % (22-44); MD NO; MEAN CORPUSCULAR HEMOGLOBIN 35.9 pg (27.0-34.8); MEAN CORPUSCULAR HGB CONC 33.5 g/dL (32.4-35.8); MEAN CORPUSCULAR VOLUME 107.1 fL (80-100); MEAN PLATELET VOLUME 7.1 fL (7.4-10.4); MONOCYTES # (AUTO) 0.59 x10^3/uL (0.2-0.8); MONOCYTES % (AUTO) 5 % (2-9); NEUTROPHILS # (AUTO) 8.75 x10^3/uL (1.8-6.8); NEUTROPHILS % (AUTO) 75 % (42-75); PLATELET COUNT 376 x10^3/uL (130-400); RED BLOOD COUNT 2.94 x10^6/uL (3.82-5.3); RED CELL DISTRIBUTION WIDTH 15.8 % (9.6-15.2)
[2018-03-19 05:50] LABS: ALBUMIN 3.6 g/dL (3.4-5.0); CALCIUM 8.1 mg/dL (8.5-10.1); CHLORIDE 106 mmol/L (98-107)
[2018-03-19 06:06] LABS: ALANINE AMINOTRANSFERASE 25 U/L (12-78); ALKALINE PHOSPHATASE 144 U/L (45-117); ANION GAP 11 mmol/L (5-15); BILIRUBIN,TOTAL 1.1 mg/dL (0.2-1.0); CREATININE 0.41 mg/dL (0.55-1.02); FREE T4 (FREE THYROXINE) 0.96 ng/dL (0.76-1.46); TOTAL PROTEIN 6.1 g/dL (6.4-8.2)
[2018-03-19] MEDS: ALBUTEROL SULFATE 2.5 MG/3 ML NPPB SCH (07:10)
[2018-03-19 07:59] VITALS: BP 104/68
[2018-03-19] MEDS: ALBUTEROL SULFATE INH SCH ×3 (09:00→21:00)
[2018-03-19] MEDS: NICOTINE 21 MG/24 HR PATCH.TD24 TD SCH (09:53)
[2018-03-19] MEDS: FOLIC ACID 1 MG TABLET PO SCH (09:56)
[2018-03-19] MEDS: NEUTRA PHOS K 250 MG TABLET PO SCH ×2 (09:56→21:23)
[2018-03-19] MEDS: THIAMINE 100MG TABLET PO SCH (09:56)
[2018-03-19] MEDS: MULTIVITAMIN 1 TABLET PO SCH (09:57)
[2018-03-19] MEDS: FLUTICASONE/VILANTEROL 200-25MCG/INH INH SCH (10:19)
[2018-03-19] MEDS ORDERED: OXYcodone IR 5MG TABLET PO PRN (11:30)
[2018-03-19 12:56] VITALS: BP 110/76
[2018-03-19] MEDS: OXYcodone IR 5MG TABLET PO PRN (17:13)
[2018-03-19] MEDS: ALBUTEROL SULFATE 2.5 MG/3 ML NPPB PRN ×2 (18:33→21:27)
[2018-03-19 19:28] VITALS: BP 137/79
[2018-03-20] MEDS: OXYcodone IR 5MG TABLET PO PRN ×4 (00:08→18:36)
[2018-03-20] MEDS: ONDANSETRON ODT 4 MG PO PRN ×2 (00:08→21:50)
[2018-03-20 00:10] VITALS: BP 128/70
[2018-03-20] MEDS: ALBUMIN HUMAN 25% 100 ML IV SCH ×3 (00:32→18:26)
[2018-03-20] MEDS: TRAZODONE 50MG TABLET PO PRN ×2 (00:33→21:50)
[2018-03-20] MEDS: D5%-0.45NACL+KCL 20MEQ 1,000 ML IV SCH (00:33)
[2018-03-20] MEDS: HEPARIN 5,000 UNITS/ML, 1ML SQ SCH ×3 (00:33→18:25)
[2018-03-20 06:31] LABS: BASOPHILS # (AUTO) 0.08 x10^3/uL (0-0.1); BASOPHILS % (AUTO) 1 % (0-1); EOSINOPHILS # (AUTO) 0.06 x10^3/uL (0-0.4); EOSINOPHILS % (AUTO) 1 % (1-7); LYMPHOCYTES # (AUTO) 1.53 x10^3/uL (1-3.4); LYMPHOCYTES % (AUTO) 17 % (22-44); MD NO; MEAN CORPUSCULAR HGB CONC 33.7 g/dL (32.4-35.8); MEAN CORPUSCULAR VOLUME 106.8 fL (80-100); MEAN PLATELET VOLUME 7.3 fL (7.4-10.4); MONOCYTES # (AUTO) 0.53 x10^3/uL (0.2-0.8); MONOCYTES % (AUTO) 6 % (2-9); NEUTROPHILS % (AUTO) 76 % (42-75); PLATELET COUNT 320 x10^3/uL (130-400); RED BLOOD COUNT 2.84 x10^6/uL (3.82-5.3); RED CELL DISTRIBUTION WIDTH 15.9 % (9.6-15.2)
[2018-03-20 06:44] LABS: ALBUMIN 4.2 g/dL (3.4-5.0); ANION GAP 9 mmol/L (5-15); CALCIUM 8.1 mg/dL (8.5-10.1); CHLORIDE 107 mmol/L (98-107)
[2018-03-20 06:49] LABS: ALANINE AMINOTRANSFERASE 28 U/L (12-78); ALKALINE PHOSPHATASE 175 U/L (45-117); BILIRUBIN,TOTAL 1.2 mg/dL (0.2-1.0); CREATININE 0.29 mg/dL (0.55-1.02); TOTAL PROTEIN 6.2 g/dL (6.4-8.2)
[2018-03-20 07:30] VITALS: BP 160/96
[2018-03-20] MEDS: ALBUTEROL SULFATE INH SCH ×3 (09:00→19:56)
[2018-03-20 10:14] VITALS: BP 144/88
[2018-03-20] MEDS: FOLIC ACID 1 MG TABLET PO SCH (12:16)
[2018-03-20] MEDS: NEUTRA PHOS K 250 MG TABLET PO SCH ×2 (12:16→21:50)
[2018-03-20] MEDS: MULTIVITAMIN 1 TABLET PO SCH (12:16)
[2018-03-20] MEDS: THIAMINE 100MG TABLET PO SCH (12:16)
[2018-03-20] MEDS: FLUTICASONE/VILANTEROL 200-25MCG/INH INH SCH (12:17)
[2018-03-20] MEDS: NICOTINE 21 MG/24 HR PATCH.TD24 TD SCH (12:28)
[2018-03-20 12:32] VITALS: BP 151/98
[2018-03-20] MEDS ORDERED: FUROSEMIDE 20 MG/2 ML IV ONE (18:00)
[2018-03-20 18:37] LABS: ALBUMIN 4.5 g/dL (3.4-5.0); ANION GAP 8 mmol/L (5-15); CALCIUM 8.8 mg/dL (8.5-10.1); CHLORIDE 107 mmol/L (98-107)
[2018-03-20] MEDS ORDERED: POTASSIUM CHLORIDE 20 MEQ TAB.ER.PRT PO ONE (19:00)
[2018-03-20 19:31] VITALS: BP 129/85
[2018-03-20] MEDS: SODIUM CHLORIDE 0.9% 1,000 ML IV SCH (19:45)
[2018-03-20 20:00] VITALS: BP 148/98
[2018-03-20] MEDS ORDERED: DOXYCYCLINE 100MG TABLET PO SCH (21:00)
[2018-03-20] MEDS: ALBUTEROL SULFATE 2.5 MG/3 ML NPPB PRN (22:05)
[2018-03-21 00:10] VITALS: BP 142/91
[2018-03-21] MEDS: HEPARIN 5,000 UNITS/ML, 1ML SQ SCH ×3 (01:43→18:23)
[2018-03-21] MEDS: ALBUMIN HUMAN 25% 100 ML IV SCH ×3 (01:43→20:14)
[2018-03-21] MEDS: OXYcodone IR 5MG TABLET PO PRN ×4 (01:43→20:15)
[2018-03-21] MEDS: SODIUM CHLORIDE 0.9% 1,000 ML IV SCH ×2 (05:22→20:16)
[2018-03-21 05:38] LABS: BASOPHILS # (AUTO) 0.09 x10^3/uL (0-0.1); BASOPHILS % (AUTO) 1 % (0-1); EOSINOPHILS # (AUTO) 0.06 x10^3/uL (0-0.4); EOSINOPHILS % (AUTO) 1 % (1-7); LYMPHOCYTES # (AUTO) 2.37 x10^3/uL (1-3.4); LYMPHOCYTES % (AUTO) 26 % (22-44); MD NO; MEAN CORPUSCULAR HEMOGLOBIN 35.8 pg (27.0-34.8); MEAN CORPUSCULAR HGB CONC 33.9 g/dL (32.4-35.8); MEAN CORPUSCULAR VOLUME 105.5 fL (80-100); MEAN PLATELET VOLUME 7.5 fL (7.4-10.4); MONOCYTES # (AUTO) 0.56 x10^3/uL (0.2-0.8); MONOCYTES % (AUTO) 6 % (2-9); NEUTROPHILS # (AUTO) 5.93 x10^3/uL (1.8-6.8); NEUTROPHILS % (AUTO) 66 % (42-75); PLATELET COUNT 303 x10^3/uL (130-400); RED BLOOD COUNT 2.72 x10^6/uL (3.82-5.3); RED CELL DISTRIBUTION WIDTH 15.7 % (9.6-15.2)
[2018-03-21 05:47] LABS: CHLORIDE 107 mmol/L (98-107)
[2018-03-21 06:01] LABS: ALBUMIN 4.1 g/dL (3.4-5.0); ANION GAP 10 mmol/L (5-15); CALCIUM 8.4 mg/dL (8.5-10.1); CREATININE 0.41 mg/dL (0.55-1.02)
[2018-03-21] MEDS: ONDANSETRON ODT 4 MG PO PRN ×3 (06:29→20:15)
[2018-03-21] MEDS ORDERED: POTASSIUM CHLORIDE 40 MEQ in SODIUM CHLORIDE 0.9% 500 ML IV ONE (07:30)
[2018-03-21] MEDS ORDERED: POTASSIUM CHLORIDE 20 MEQ TAB.ER.PRT PO ONE (07:30)
[2018-03-21 07:38] VITALS: BP 104/67
[2018-03-21] MEDS: NEUTRA PHOS K 250 MG TABLET PO SCH ×2 (08:09→20:14)
[2018-03-21] MEDS: FLUTICASONE/VILANTEROL 200-25MCG/INH INH SCH (08:09)
[2018-03-21] MEDS: FOLIC ACID 1 MG TABLET PO SCH (08:09)
[2018-03-21] MEDS: THIAMINE 100MG TABLET PO SCH (08:10)
[2018-03-21] MEDS: NICOTINE 21 MG/24 HR PATCH.TD24 TD SCH (08:10)
[2018-03-21] MEDS: MULTIVITAMIN 1 TABLET PO SCH (08:10)
[2018-03-21] MEDS: ALBUTEROL SULFATE INH SCH ×3 (09:00→20:09)
[2018-03-21 12:29] VITALS: BP 104/67
[2018-03-21 19:55] VITALS: BP 130/80
[2018-03-22] MEDS: HEPARIN 5,000 UNITS/ML, 1ML SQ SCH ×2 (01:29→12:03)
[2018-03-22] MEDS: ALBUTEROL SULFATE 2.5 MG/3 ML NPPB PRN (01:48)
[2018-03-22 01:56] VITALS: BP 120/79
[2018-03-22] MEDS: OXYcodone IR 5MG TABLET PO PRN ×3 (02:24→15:08)
[2018-03-22] MEDS: ONDANSETRON ODT 4 MG PO PRN ×3 (02:26→15:08)
[2018-03-22] MEDS: ALBUMIN HUMAN 25% 100 ML IV SCH (04:22)
[2018-03-22 05:54] LABS: BASOPHILS # (AUTO) 0.03 x10^3/uL (0-0.1); BASOPHILS % (AUTO) 0 % (0-1); EOSINOPHILS # (AUTO) 0.05 x10^3/uL (0-0.4); EOSINOPHILS % (AUTO) 1 % (1-7); LYMPHOCYTES # (AUTO) 1.79 x10^3/uL (1-3.4); LYMPHOCYTES % (AUTO) 22 % (22-44); MD NO; MEAN CORPUSCULAR HEMOGLOBIN 35.1 pg (27.0-34.8); MEAN CORPUSCULAR HGB CONC 33.6 g/dL (32.4-35.8); MEAN CORPUSCULAR VOLUME 104.3 fL (80-100); MEAN PLATELET VOLUME 7.8 fL (7.4-10.4); MONOCYTES # (AUTO) 0.52 x10^3/uL (0.2-0.8); MONOCYTES % (AUTO) 6 % (2-9); NEUTROPHILS # (AUTO) 5.77 x10^3/uL (1.8-6.8); NEUTROPHILS % (AUTO) 71 % (42-75); PLATELET COUNT 327 x10^3/uL (130-400); RED BLOOD COUNT 2.62 x10^6/uL (3.82-5.3); RED CELL DISTRIBUTION WIDTH 15.2 % (9.6-15.2)
[2018-03-22 06:02] LABS: ALBUMIN 4.4 g/dL (3.4-5.0); ANION GAP 8 mmol/L (5-15); CALCIUM 8.3 mg/dL (8.5-10.1); CHLORIDE 108 mmol/L (98-107)
[2018-03-22 06:06] LABS: ALANINE AMINOTRANSFERASE 24 U/L (12-78); ALKALINE PHOSPHATASE 124 U/L (45-117); BILIRUBIN,TOTAL 1.7 mg/dL (0.2-1.0); CREATININE 0.26 mg/dL (0.55-1.02); TOTAL PROTEIN 6.1 g/dL (6.4-8.2)
[2018-03-22 08:13] VITALS: BP 125/80
[2018-03-22] MEDS: SODIUM CHLORIDE 0.9% 1,000 ML IV SCH (08:57)
[2018-03-22] MEDS: NEUTRA PHOS K 250 MG TABLET PO SCH (08:57)
[2018-03-22] MEDS: FOLIC ACID 1 MG TABLET PO SCH (08:57)
[2018-03-22] MEDS: THIAMINE 100MG TABLET PO SCH (08:57)
[2018-03-22] MEDS: MULTIVITAMIN 1 TABLET PO SCH (08:57)
[2018-03-22] MEDS: FLUTICASONE/VILANTEROL 200-25MCG/INH INH SCH (08:58)
[2018-03-22] MEDS: ALBUTEROL SULFATE INH SCH (08:58)
[2018-03-22] MEDS: NICOTINE 21 MG/24 HR PATCH.TD24 TD SCH (09:11)
[2018-03-22] MEDS ORDERED: LOPERAMIDE 1 MG/5 ML, 10ML UDC PO ONE (12:00)
[2018-03-22 13:31] VITALS: BP 105/65
[2018-03-23] MEDS ORDERED: OMEPRAZOLE 20 MG CAPSULE.DR PO SCH (07:30)
== END 2018-03-22 16:46 | disposition left against medical advice (07) | DRG 432 ==
LOC: ED 12:54 → 3NE 16:17
PROVIDERS: ADMIT Hospitalist; ATTEND Hospitalist
PROC: 0W9G3ZZ Drainage of Peritoneal Cavity, Percutaneous Approach (ICD-10-PCS; principal; 2018-03-17)
DX: K70.31 Alcoholic cirrhosis of liver with ascites (principal); K85.20 Alcohol induced acute pancreatitis without necrosis or infection; K86.3 Pseudocyst of pancreas; E87.1 Hypo-osmolality and hyponatremia; J81.1 Chronic pulmonary edema; J98.11 Atelectasis; K76.6 Portal hypertension; K86.1 Other chronic pancreatitis; E86.9 Volume depletion, unspecified; K76.0 Fatty (change of) liver, not elsewhere classified; E87.6 Hypokalemia; E86.0 Dehydration; Z53.21 Procedure and treatment not carried out due to patient leaving prior to being seen by health care provider; E03.9 Hypothyroidism, unspecified; F17.210 Nicotine dependence, cigarettes, uncomplicated; J44.9 Chronic obstructive pulmonary disease, unspecified; K58.0 Irritable bowel syndrome with diarrhea; R09.02 Hypoxemia; T36.1X5A Adverse effect of cephalosporins and other beta-lactam antibiotics, initial encounter; M79.89 Other specified soft tissue disorders; F41.9 Anxiety disorder, unspecified; F10.10 Alcohol abuse, uncomplicated; E55.9 Vitamin D deficiency, unspecified; Z71.6 Tobacco abuse counseling; Z88.8 Allergy status to other drugs, medicaments and biological substances; Y92.89 Other specified places as the place of occurrence of the external cause
CPT/HCPCS: 36415; 49083; 71045; 71046; 74018; 74177; 80048; 80053; 81003; 82040; 82042; 82607; 82746; 82962; 83605; 83690; 83735; 84100; 84157; 84439; 84443; 85025; 87040; 87046; 87070; 87077; 87186; 87205; 87324; 87427; 89051; 89055; 93005; 94640; 96374; 96375; J0696; J1644; J2405; J3475; J3480; J3490; J7613; P9047; Q0162; Q9967; J1200; J1940; J2270; J2930; J7030; J7040; S0028